=== PATIENT | male | born 1940 | race Caucasian/White ===

== ENCOUNTER 2020-12-12 13:47 | Observation (INO) ==
[2020-12-12 20:08] LABS: ABS Eosinophils 0.1 10^3/ul (0-0.6); ABS Lymphocytes 0.9 10^3/ul (1.0-4.8); ABS Monocytes 0.3 10^3/ul (0-0.8); ABS Neutrophils 3.5 10^3/ul (1.5-7.7); Eosinophil % 2.7 %; Hematocrit 39 % (42-52); Hemoglobin 13.1 g/dL (14.0-18.0); Mean Corpuscular HGB Conc 33 g/dL (31-36); Mean Corpuscular Hemoglobin 30 pg (27-31); Mean Corpuscular Volume 89 fL (80-94); Nucleated Red Blood Cells % 0.1; Red Blood Count 4.44 10^6 /uL (4.18-5.48); Red Cell Distribution Width 14 % (10-15); White Blood Count 4.9 10^3/uL (3.5-10.8)
[2020-12-12 20:09] LABS: Troponin I 0.01 ng/mL (<0.03)
[2020-12-12 20:10] LABS: Albumin 3.9 g/dL (3.2-5.2); Albumin/Globulin Ratio 1.2 (1-3); Calcium 10.2 mg/dL (8.6-10.3); Globulin 3.2 g/dL (2-4); Potassium 4.2 mmol/L (3.5-5.0); Total Bilirubin 0.7 mg/dL (0.2-1.0); Total Protein 7.1 g/dL (6.4-8.9)
[2020-12-12 20:33] LABS: INR 1.17 (0.86-1.15)
[2020-12-12 20:40] LABS: Mean Platelet Volume 7.6 fL (7.4-10.4)
[2020-12-12 20:41] LABS: Platelet Count 177 10^3/uL (150-450)
[2020-12-12] MEDS ORDERED: Dextrose 50% Syringe 50 ml 25 GM/50 ML SYRINGE IV PUSH PRN (22:30)
[2020-12-12] MEDS ORDERED: Nystatin TOP POWDER 15 GM BTL TOPICAL PRN (22:34)
[2020-12-12] MEDS ORDERED: Albuterol HFA INHALER 8 gm MDI INH PRN (22:34)
[2020-12-12] MEDS ORDERED: Cyanocobalamin INJ 1,000 MCG/ML VIAL 1 ML VIAL IM SCH (23:00)
[2020-12-12 23:04] LABS: Rapid COVID-19 Molecular Undetected (Undetected)
[2020-12-12] MEDS ORDERED: Albuterol/Ipratropium NEB.SOL (2.5/0.5 MG) 3 ML NEB.SOLN INH PRN (23:45)
[2020-12-13] MEDS: Morphine ER 15 mg TAB ** extended release PO SCH ×3 (02:31→23:01)
[2020-12-13] MEDS: Lidocaine PATCH 5% PATCH TRANSDERM SCH ×2 (02:32→10:24)
[2020-12-13 02:51] LABS: TSH Ultra Thyroid Stim Horm 2.47 mcIU/mL (0.34-5.60)
[2020-12-13 03:29] LABS: Urine Appearance Clear; Urine Bilirubin Negative (Negative); Urine Blood Negative (Negative); Urine Color Yellow; Urine Glucose 2+(150 mg/dL) (Negative); Urine Ketones Negative (Negative); Urine Nitrite Negative (Negative); Urine Protein Negative (Negative); Urine Specific Gravity 1.016 (1.002-1.030); Urine Urobilinogen Negative (Negative)
[2020-12-13] MEDS: Heparin 5000 UNITS/ML 1 mL VIAL SUBCUT SCH ×2 (05:43→16:22)
[2020-12-13 06:34] LABS: ABS Eosinophils 0.1 10^3/ul (0-0.6); ABS Lymphocytes 0.7 10^3/ul (1.0-4.8); ABS Monocytes 0.5 10^3/ul (0-0.8); Eosinophil % 2.4 %; Hematocrit 35 % (42-52); Hemoglobin 11.7 g/dL (14.0-18.0); Lymphocyte % 12.4 %; Mean Corpuscular HGB Conc 34 g/dL (31-36); Mean Corpuscular Hemoglobin 30 pg (27-31); Mean Corpuscular Volume 88 fL (80-94); Mean Platelet Volume 7.4 fL (7.4-10.4); Nucleated Red Blood Cells % 0.1; Platelet Count 166 10^3/uL (150-450); Red Blood Count 3.95 10^6 /uL (4.18-5.48); Red Cell Distribution Width 14 % (10-15); White Blood Count 5.3 10^3/uL (3.5-10.8)
[2020-12-13 07:07] LABS: Calcium 9.6 mg/dL (8.6-10.3); Potassium 3.9 mmol/L (3.5-5.0)
[2020-12-13] MEDS: Mometasone/Formoter 100/5 MDI INH SCH ×2 (08:19→19:32)
[2020-12-13] MEDS: Insulin GLARGINE 100 un/ml 10 ml VIAL SUBCUT SCH (10:20)
[2020-12-13] MEDS: Lidocaine Patch REMOVE PATCH PATCH OFF SCH (10:24)
[2020-12-13] MEDS: Polyethylene Glycol 3350 17 GM PACKET PO PRN (10:29)
[2020-12-13] MEDS: Pentoxifylline CR 400 mg TAB 400 MG PO SCH ×3 (10:30→21:50)
[2020-12-13] MEDS: OMEGA ACID ETHYL ESTERS PO SCH ×2 (10:31→22:06)
[2020-12-13] MEDS: CMCS: Cyclosporine 0.05% OPHTH (NF) 0.4 ML VIAL BOTH EYES SCH ×2 (10:32→23:01)
[2020-12-13] MEDS ORDERED: Magnesium Hydroxide LIQ 30 ML UDC PO PRN (14:51)
[2020-12-13] MEDS ORDERED: Senna TAB 8.6 mg TAB PO PRN (14:51)
[2020-12-13] MEDS: Sucralfate 1 gm SUSP 1 GM/10 ML UDC PO SCH ×2 (18:24→21:48)
[2020-12-14] MEDS: Heparin 5000 UNITS/ML 1 mL VIAL SUBCUT SCH ×4 (01:29→20:59)
[2020-12-14] MEDS: Lidocaine Patch REMOVE PATCH PATCH OFF SCH ×2 (01:29→21:17)
[2020-12-14] MEDS: Mometasone/Formoter 100/5 MDI INH SCH ×2 (07:28→19:51)
[2020-12-14] MEDS: Sucralfate 1 gm SUSP 1 GM/10 ML UDC PO SCH ×4 (10:00→20:51)
[2020-12-14] MEDS: Insulin GLARGINE 100 un/ml 10 ml VIAL SUBCUT SCH (10:10)
[2020-12-14] MEDS: Polyethylene Glycol 3350 17 GM PACKET PO PRN (10:28)
[2020-12-14] MEDS: Pentoxifylline CR 400 mg TAB 400 MG PO SCH ×3 (10:28→20:52)
[2020-12-14] MEDS: Morphine ER 15 mg TAB ** extended release PO SCH ×2 (10:30→20:54)
[2020-12-14] MEDS: Lidocaine PATCH 5% PATCH TRANSDERM SCH (11:28)
[2020-12-14] MEDS: OMEGA ACID ETHYL ESTERS PO SCH (11:28)
[2020-12-14] MEDS: CMCS: Cyclosporine 0.05% OPHTH (NF) 0.4 ML VIAL BOTH EYES SCH ×2 (13:19→20:57)
[2020-12-14] MEDS ORDERED: Flu vaccine *QUAD* 2021-22* 0.5 ML SYRINGE IM ONE (13:35)
[2020-12-15] MEDS: OMEGA ACID ETHYL ESTERS PO SCH ×2 (01:03→08:20)
[2020-12-15 04:34] LABS: ABS Eosinophils 0.2 10^3/ul (0-0.6); ABS Lymphocytes 1.1 10^3/ul (1.0-4.8); ABS Monocytes 0.4 10^3/ul (0-0.8); ABS Neutrophils 2.3 10^3/ul (1.5-7.7); Eosinophil % 4.1 %; Hematocrit 35 % (42-52); Hemoglobin 11.6 g/dL (14.0-18.0); Mean Corpuscular HGB Conc 33 g/dL (31-36); Mean Corpuscular Hemoglobin 29 pg (27-31); Mean Corpuscular Volume 88 fL (80-94); Mean Platelet Volume 6.9 fL (7.4-10.4); Platelet Count 181 10^3/uL (150-450); Red Blood Count 3.98 10^6 /uL (4.18-5.48); Red Cell Distribution Width 14 % (10-15)
[2020-12-15] MEDS: Heparin 5000 UNITS/ML 1 mL VIAL SUBCUT SCH ×2 (06:06→14:13)
[2020-12-15] MEDS: Mometasone/Formoter 100/5 MDI INH SCH (08:11)
[2020-12-15] MEDS: Lidocaine PATCH 5% PATCH TRANSDERM SCH (08:15)
[2020-12-15] MEDS: Sucralfate 1 gm SUSP 1 GM/10 ML UDC PO SCH ×3 (08:16→17:02)
[2020-12-15] MEDS: Pentoxifylline CR 400 mg TAB 400 MG PO SCH ×2 (08:18→14:13)
[2020-12-15] MEDS: Morphine ER 15 mg TAB ** extended release PO SCH (08:18)
[2020-12-15] MEDS: CMCS: Cyclosporine 0.05% OPHTH (NF) 0.4 ML VIAL BOTH EYES SCH (08:19)
[2020-12-15] MEDS: Insulin GLARGINE 100 un/ml 10 ml VIAL SUBCUT SCH (08:20)
[2020-12-15 16:16] VITALS: BP 124/56
== END 2020-12-15 17:50 | disposition home or self-care (01) ==
LOC: MEDTELE 13:47 → ED 13:47 → SUATTDRO 23:15
PROVIDERS: ADMIT Internal Medicine; ATTEND Internal Medicine

== ENCOUNTER 2021-08-31 17:02 | Inpatient (IN) ==
[2021-08-31 17:39] LABS: ABS Lymphocytes 0.3 10^3/ul (1.0-4.8); ABS Monocytes 0.2 10^3/ul (0-0.8); ABS Neutrophils 2.5 10^3/ul (1.5-7.7); Eosinophil % 0.3 %; Hematocrit 33 % (42-52); Hemoglobin 10.8 g/dL (14.0-18.0); Lymphocyte % 10.8 %; Mean Corpuscular HGB Conc 33 g/dL (31-36); Mean Corpuscular Hemoglobin 29 pg (27-31); Mean Corpuscular Volume 89 fL (80-94); Mean Platelet Volume 7.1 fL (7.4-10.4); Nucleated Red Blood Cells % 0.1; Platelet Count 146 10^3/uL (150-450); Red Blood Count 3.75 10^6 /uL (4.18-5.48); Red Cell Distribution Width 14 % (10-15); White Blood Count 3.1 10^3/uL (3.5-10.8)
[2021-08-31 18:13] LABS: Albumin 3.6 g/dL (3.2-5.2); Albumin/Globulin Ratio 1.7 (1-3); Calcium 8.9 mg/dL (8.6-10.3); Globulin 2.1 g/dL (2-4); Potassium 4.3 mmol/L (3.5-5.0); Total Bilirubin 0.4 mg/dL (0.2-1.0); Total Protein 5.7 g/dL (6.4-8.9); eGFR CKD-EPI 49.5 (>60)
[2021-08-31] MEDS ORDERED: Albuterol HFA INHALER 8 gm MDI INH ONE (18:55)
[2021-08-31] MEDS ORDERED: NS 0.9% 1000 ml BAG 1,000 ML IV SCH (20:15)
[2021-08-31] MEDS ORDERED: Ondansetron 4 mg VIAL 2 MG/ML 2 ml VIAL IV PRN (21:39)
[2021-08-31] MEDS ORDERED: Remdesivir 100 mg Vial 200 MG in NS 0.9% 250 ml 210 ML IV ONE (21:49)
[2021-08-31] MEDS ORDERED: Albuterol HFA INHALER 8 gm MDI INH PRN (22:20)
[2021-08-31] MEDS ORDERED: Ammonium Lactate 12% 1 APPLIC TUBE TOPICAL PRN (22:20)
[2021-08-31] MEDS ORDERED: Nystatin TOP POWDER 15 GM BTL TOPICAL PRN (22:20)
[2021-08-31] MEDS ORDERED: Dextrose 50% Syringe 50 ml 25 GM/50 ML SYRINGE IV PUSH PRN (22:28)
[2021-08-31] MEDS ORDERED: Pantoprazole VIAL 40 MG VIAL IV ONE (22:31)
[2021-08-31 22:59] LABS: Hematocrit 33 % (42-52); Hemoglobin 10.6 g/dL (14.0-18.0)
[2021-08-31] MEDS ORDERED: Pantoprazole VIAL 40 MG VIAL IV SCH (23:00)
[2021-08-31 23:08] LABS: INR 1.15 (0.86-1.15)
[2021-08-31 23:24] LABS: Albumin 3.5 g/dL (3.2-5.2); Albumin/Globulin Ratio 1.8 (1-3); Calcium 8.9 mg/dL (8.6-10.3); Potassium 4.1 mmol/L (3.5-5.0); Total Bilirubin 0.4 mg/dL (0.2-1.0); Total Protein 5.5 g/dL (6.4-8.9); eGFR CKD-EPI 47.9 (>60)
[2021-09-01] MEDS: Morphine ER 15 mg TAB ** extended release PO SCH ×3 (00:55→22:31)
[2021-09-01] MEDS ORDERED: Pentoxifylline CR 400 mg TAB 400 MG PO ONE (01:07)
[2021-09-01] MEDS: MOMETASONE FORMOTEROL INH SCH ×2 (04:05→11:48)
[2021-09-01] MEDS: [UNRECOGNIZED DRUG - OTHER] INH SCH ×2 (04:05→11:48)
[2021-09-01 05:48] LABS: ABS Lymphocytes 0.5 10^3/ul (1.0-4.8); ABS Monocytes 0.2 10^3/ul (0-0.8); ABS Neutrophils 1.7 10^3/ul (1.5-7.7); Eosinophil % 0.7 %; Hematocrit 31 % (42-52); Lymphocyte % 19.3 %; Mean Corpuscular HGB Conc 33 g/dL (31-36); Mean Corpuscular Hemoglobin 29 pg (27-31); Mean Corpuscular Volume 89 fL (80-94); Mean Platelet Volume 7.4 fL (7.4-10.4); Nucleated Red Blood Cells % 0.1; Platelet Count 119 10^3/uL (150-450); Red Blood Count 3.43 10^6 /uL (4.18-5.48); Red Cell Distribution Width 14 % (10-15); White Blood Count 2.5 10^3/uL (3.5-10.8)
[2021-09-01 05:54] LABS: INR 1.14 (0.86-1.15)
[2021-09-01 06:34] LABS: Albumin 3.3 g/dL (3.2-5.2); Albumin/Globulin Ratio 1.8 (1-3); Calcium 8.3 mg/dL (8.6-10.3); Direct Bilirubin 0.1 mg/dL (0.03-0.18); Globulin 1.8 g/dL (2-4); Indirect Bilirubin 0.2 mg/dL (0.3-1.0); Potassium 3.8 mmol/L (3.5-5.0); Total Bilirubin 0.3 mg/dL (0.2-1.0); Total Protein 5.1 g/dL (6.4-8.9); eGFR CKD-EPI 47.9 (>60)
[2021-09-01] MEDS: Insulin GLARGINE 100 un/ml 10 ml VIAL SUBCUT SCH (09:35)
[2021-09-01] MEDS: Pantoprazole VIAL 40 MG VIAL IV SCH ×2 (09:36→22:37)
[2021-09-01] MEDS ORDERED: CMCS:OMEGA-3 FATTY ACID 1000 mg(NF) PO SCH (11:00)
[2021-09-01] MEDS: Pentoxifylline CR 400 mg TAB 400 MG PO SCH ×3 (11:27→22:33)
[2021-09-01] MEDS: Mometasone/Formoter 100/5 MDI INH SCH ×2 (11:27→19:56)
[2021-09-01] MEDS: SPIRIVA Respimat (tiotropium) 2.5 mcg/inh Inhaler INH SCH (11:28)
[2021-09-01 11:52] LABS: Hematocrit 30 % (42-52); Hemoglobin 9.9 g/dL (14.0-18.0)
[2021-09-01] MEDS: Remdesivir 100 mg Vial 100 MG in NS 0.9% 250 ml 230 ML IV SCH (22:23)
[2021-09-01] MEDS: CMCS:OMEGA-3 FATTY ACID 1000 mg(NF) PO SCH (22:30)
[2021-09-01] MEDS: CMCS: Cyclosporine 0.05% OPHTH (NF) 0.4 ML VIAL BOTH EYES SCH (22:36)
[2021-09-01] MEDS ORDERED: Insulin GLARGINE 100 un/ml 10 ml VIAL SUBCUT ONE (22:57)
[2021-09-02] MEDS: SPIRIVA Respimat (tiotropium) 2.5 mcg/inh Inhaler INH SCH (07:35)
[2021-09-02] MEDS: Mometasone/Formoter 100/5 MDI INH SCH ×2 (07:35→20:15)
[2021-09-02] MEDS: CMCS:OMEGA-3 FATTY ACID 1000 mg(NF) PO SCH ×2 (08:15→22:11)
[2021-09-02] MEDS: Pentoxifylline CR 400 mg TAB 400 MG PO SCH ×3 (08:16→22:13)
[2021-09-02] MEDS: Morphine ER 15 mg TAB ** extended release PO SCH ×2 (08:16→22:14)
[2021-09-02] MEDS: CMCS: Cyclosporine 0.05% OPHTH (NF) 0.4 ML VIAL BOTH EYES SCH ×2 (08:17→22:22)
[2021-09-02] MEDS: Pantoprazole VIAL 40 MG VIAL IV SCH ×2 (08:17→22:16)
[2021-09-02] MEDS: Insulin GLARGINE 100 un/ml 10 ml VIAL SUBCUT SCH ×3 (08:18→22:23)
[2021-09-02 08:23] LABS: ABS Lymphocytes 0.3 10^3/ul (1.0-4.8); ABS Monocytes 0.2 10^3/ul (0-0.8); ABS Neutrophils 1.2 10^3/ul (1.5-7.7); Hematocrit 28 % (42-52); Hemoglobin 9.2 g/dL (14.0-18.0); Lymphocyte % 17.6 %; Mean Corpuscular HGB Conc 34 g/dL (31-36); Mean Corpuscular Hemoglobin 30 pg (27-31); Mean Corpuscular Volume 89 fL (80-94); Mean Platelet Volume 7.7 fL (7.4-10.4); Platelet Count 120 10^3/uL (150-450); Red Cell Distribution Width 14 % (10-15); White Blood Count 1.7 10^3/uL (3.5-10.8)
[2021-09-02 08:36] LABS: Albumin 3.1 g/dL (3.2-5.2); Albumin/Globulin Ratio 1.6 (1-3); Globulin 1.9 g/dL (2-4); Potassium 4.1 mmol/L (3.5-5.0); Total Bilirubin 0.3 mg/dL (0.2-1.0); eGFR CKD-EPI 50.4 (>60)
[2021-09-02 08:37] LABS: INR 1.15 (0.86-1.15)
[2021-09-02] MEDS ORDERED: Lorazepam PYXIS KEY ONE (10:38)
[2021-09-02] MEDS: Polyethylene Glycol 3350 17 GM PACKET PO PRN (12:00)
[2021-09-02 17:53] LABS: Hematocrit 28 % (42-52); Hemoglobin 9.3 g/dL (14.0-18.0)
[2021-09-02] MEDS: Remdesivir 100 mg Vial 100 MG in NS 0.9% 250 ml 230 ML IV SCH (22:05)
[2021-09-03] MEDS: Albuterol HFA INHALER 8 gm MDI INH PRN ×2 (00:40→20:46)
[2021-09-03 06:31] LABS: INR 1.12 (0.86-1.15)
[2021-09-03 06:52] LABS: Albumin/Globulin Ratio 1.6 (1-3); Calcium 8.1 mg/dL (8.6-10.3); Globulin 1.9 g/dL (2-4); Potassium 3.9 mmol/L (3.5-5.0); Total Bilirubin 0.2 mg/dL (0.2-1.0); Total Protein 4.9 g/dL (6.4-8.9)
[2021-09-03] MEDS: SPIRIVA Respimat (tiotropium) 2.5 mcg/inh Inhaler INH SCH (08:20)
[2021-09-03] MEDS: Mometasone/Formoter 100/5 MDI INH SCH ×2 (08:20→20:45)
[2021-09-03] MEDS: Pentoxifylline CR 400 mg TAB 400 MG PO SCH ×3 (08:37→23:11)
[2021-09-03] MEDS: Morphine ER 15 mg TAB ** extended release PO SCH ×2 (08:38→23:12)
[2021-09-03] MEDS: Insulin GLARGINE 100 un/ml 10 ml VIAL SUBCUT SCH ×2 (08:39→23:33)
[2021-09-03] MEDS: CMCS:OMEGA-3 FATTY ACID 1000 mg(NF) PO SCH ×2 (08:39→23:10)
[2021-09-03] MEDS: Pantoprazole VIAL 40 MG VIAL IV SCH ×2 (08:39→23:05)
[2021-09-03] MEDS: CMCS: Cyclosporine 0.05% OPHTH (NF) 0.4 ML VIAL BOTH EYES SCH ×3 (09:04→23:14)
[2021-09-03] MEDS: Polyethylene Glycol 3350 17 GM PACKET PO PRN (15:01)
[2021-09-03 15:04] LABS: ABS Lymphocytes 0.5 10^3/ul (1.0-4.8); ABS Monocytes 0.2 10^3/ul (0-0.8); ABS Neutrophils 1.7 10^3/ul (1.5-7.7); Eosinophil % 0.3 %; Hematocrit 28 % (42-52); Hemoglobin 9.1 g/dL (14.0-18.0); Lymphocyte % 21.6 %; Mean Corpuscular HGB Conc 33 g/dL (31-36); Mean Corpuscular Hemoglobin 29 pg (27-31); Mean Corpuscular Volume 88 fL (80-94); Mean Platelet Volume 8.1 fL (7.4-10.4); Nucleated Red Blood Cells % 0.1; Platelet Count 128 10^3/uL (150-450); Red Blood Count 3.16 10^6 /uL (4.18-5.48); Red Cell Distribution Width 14 % (10-15); White Blood Count 2.4 10^3/uL (3.5-10.8)
[2021-09-03] MEDS: Remdesivir 100 mg Vial 100 MG in NS 0.9% 250 ml 230 ML IV SCH (23:01)
[2021-09-04 06:47] LABS: ABS Lymphocytes 0.6 10^3/ul (1.0-4.8); ABS Monocytes 0.2 10^3/ul (0-0.8); ABS Neutrophils 1.6 10^3/ul (1.5-7.7); Eosinophil % 0.5 %; Hematocrit 29 % (42-52); Hemoglobin 9.5 g/dL (14.0-18.0); INR 1.11 (0.86-1.15); Lymphocyte % 24.4 %; Mean Corpuscular HGB Conc 33 g/dL (31-36); Mean Corpuscular Hemoglobin 30 pg (27-31); Mean Corpuscular Volume 89 fL (80-94); Platelet Count 141 10^3/uL (150-450); Red Blood Count 3.23 10^6 /uL (4.18-5.48); Red Cell Distribution Width 14 % (10-15); White Blood Count 2.5 10^3/uL (3.5-10.8)
[2021-09-04 07:21] LABS: Albumin 3.2 g/dL (3.2-5.2); Albumin/Globulin Ratio 1.7 (1-3); Globulin 1.9 g/dL (2-4); Potassium 4.3 mmol/L (3.5-5.0); Total Bilirubin 0.2 mg/dL (0.2-1.0); Total Protein 5.1 g/dL (6.4-8.9); eGFR CKD-EPI 56.1 (>60)
[2021-09-04] MEDS: Albuterol HFA INHALER 8 gm MDI INH PRN (07:41)
[2021-09-04] MEDS: Insulin GLARGINE 100 un/ml 10 ml VIAL SUBCUT SCH ×2 (09:16→23:37)
[2021-09-04] MEDS: Pentoxifylline CR 400 mg TAB 400 MG PO SCH ×3 (09:18→23:34)
[2021-09-04] MEDS: Morphine ER 15 mg TAB ** extended release PO SCH ×2 (09:18→23:34)
[2021-09-04] MEDS: Polyethylene Glycol 3350 17 GM PACKET PO PRN (09:19)
[2021-09-04] MEDS: Pantoprazole VIAL 40 MG VIAL IV SCH ×2 (09:19→23:40)
[2021-09-04] MEDS: CMCS: Cyclosporine 0.05% OPHTH (NF) 0.4 ML VIAL BOTH EYES SCH ×2 (09:20→23:40)
[2021-09-04] MEDS: CMCS:OMEGA-3 FATTY ACID 1000 mg(NF) PO SCH ×2 (09:22→23:36)
[2021-09-04] MEDS: Mometasone/Formoter 100/5 MDI INH SCH ×2 (09:23→19:02)
[2021-09-04] MEDS: SPIRIVA Respimat (tiotropium) 2.5 mcg/inh Inhaler INH SCH (09:24)
[2021-09-04] MEDS: Remdesivir 100 mg Vial 100 MG in NS 0.9% 250 ml 230 ML IV SCH (23:30)
[2021-09-05 06:10] LABS: Hematocrit 30 % (42-52); Hemoglobin 9.6 g/dL (14.0-18.0); Mean Corpuscular HGB Conc 33 g/dL (31-36); Mean Corpuscular Hemoglobin 29 pg (27-31); Mean Corpuscular Volume 88 fL (80-94); Mean Platelet Volume 7.9 fL (7.4-10.4); Platelet Count 177 10^3/uL (150-450); Red Blood Count 3.35 10^6 /uL (4.18-5.48); Red Cell Distribution Width 14 % (10-15); White Blood Count 2.9 10^3/uL (3.5-10.8)
[2021-09-05 06:15] LABS: INR 1.18 (0.86-1.15)
[2021-09-05 06:46] LABS: Albumin 3.2 g/dL (3.2-5.2); Albumin/Globulin Ratio 1.8 (1-3); Calcium 8.4 mg/dL (8.6-10.3); Globulin 1.8 g/dL (2-4); Potassium 4.6 mmol/L (3.5-5.0); Total Bilirubin 0.3 mg/dL (0.2-1.0); eGFR CKD-EPI 62.4 (>60)
[2021-09-05] MEDS: SPIRIVA Respimat (tiotropium) 2.5 mcg/inh Inhaler INH SCH (08:19)
[2021-09-05] MEDS: Mometasone/Formoter 100/5 MDI INH SCH (08:20)
[2021-09-05 08:27] LABS: ABS Lymphocytes 0.5 10^3/ul (1.0-4.8); ABS Monocytes 0.3 10^3/ul (0-0.8); ABS Neutrophils 2.1 10^3/ul (1.5-7.7); Eosinophil % 0.3 %; Lymphocyte % 17.4 %; Nucleated Red Blood Cells % 0.1
[2021-09-05] MEDS: Insulin GLARGINE 100 un/ml 10 ml VIAL SUBCUT SCH (09:23)
[2021-09-05] MEDS: Pantoprazole VIAL 40 MG VIAL IV SCH (09:23)
[2021-09-05] MEDS: Morphine ER 15 mg TAB ** extended release PO SCH (09:24)
[2021-09-05] MEDS: Pentoxifylline CR 400 mg TAB 400 MG PO SCH (09:24)
[2021-09-05] MEDS: CMCS:OMEGA-3 FATTY ACID 1000 mg(NF) PO SCH (09:25)
[2021-09-05] MEDS: CMCS: Cyclosporine 0.05% OPHTH (NF) 0.4 ML VIAL BOTH EYES SCH ×2 (11:34→11:38)
[2021-09-05 12:35] VITALS: BP 137/55
== END 2021-09-05 13:36 | DRG 177 ==
LOC: EDHOLD 17:02 → ED 17:02 → SUATTDRO 21:33 → MED 09-01 14:23 → SUATTDRO 09-02 20:04 → MED 09-05 03:54
PROVIDERS: ADMIT Internal Medicine; ATTEND Hospitalist

== ENCOUNTER 2021-09-05 11:50 | Inpatient (IN) ==
[2021-09-05] MEDS ORDERED: Senna TAB 8.6 mg TAB PO PRN (16:35)
[2021-09-05] MEDS ORDERED: Dextrose 50% Syringe 50 ml 25 GM/50 ML SYRINGE IV PUSH PRN (16:48)
[2021-09-05] MEDS: Mometasone/Formoter 100/5 MDI INH SCH ×2 (19:24→19:28)
[2021-09-05] MEDS: Morphine ER 15 mg TAB ** extended release PO SCH (21:07)
[2021-09-05] MEDS: Pentoxifylline CR 400 mg TAB 400 MG PO SCH (21:08)
[2021-09-05] MEDS: Pantoprazole VIAL 40 MG VIAL IV SCH (21:09)
[2021-09-05] MEDS: CMCS: Cyclosporine 0.05% OPHTH (NF) 0.4 ML VIAL BOTH EYES SCH (21:10)
[2021-09-05] MEDS: Insulin GLARGINE 100 un/ml 10 ml VIAL SUBCUT SCH (22:43)
[2021-09-05] MEDS: CMCS: OMEGA-3 FATTY ACID 1000 mg(NF) PO SCH (22:44)
[2021-09-05] MEDS: Polyethylene Glycol 3350 17 GM PACKET PO PRN (22:45)
[2021-09-06 00:32] LABS: Hematocrit 29 % (42-52); Hemoglobin 9.6 g/dL (14.0-18.0)
[2021-09-06] MEDS: Mometasone/Formoter 100/5 MDI INH SCH ×2 (08:41→19:46)
[2021-09-06] MEDS: Pentoxifylline CR 400 mg TAB 400 MG PO SCH ×3 (08:42→22:43)
[2021-09-06] MEDS: SPIRIVA Respimat (tiotropium) 2.5 mcg/inh Inhaler INH SCH (08:42)
[2021-09-06] MEDS: Morphine ER 15 mg TAB ** extended release PO SCH ×2 (08:42→22:43)
[2021-09-06] MEDS: CMCS: Cyclosporine 0.05% OPHTH (NF) 0.4 ML VIAL BOTH EYES SCH ×3 (08:43→22:46)
[2021-09-06] MEDS: Insulin GLARGINE 100 un/ml 10 ml VIAL SUBCUT SCH ×2 (08:44→22:30)
[2021-09-06] MEDS: CMCS: OMEGA-3 FATTY ACID 1000 mg(NF) PO SCH ×2 (08:44→22:45)
[2021-09-06] MEDS: Pantoprazole VIAL 40 MG VIAL IV SCH ×2 (08:45→22:57)
[2021-09-06] MEDS: Albuterol HFA INHALER 8 gm MDI INH PRN ×2 (16:18→23:05)
[2021-09-06] MEDS: Sucralfate 1 gm SUSP 1 GM/10 ML UDC PO SCH ×2 (16:44→22:36)
[2021-09-07 06:48] LABS: Hematocrit 29 % (42-52); Hemoglobin 9.9 g/dL (14.0-18.0); Mean Corpuscular HGB Conc 34 g/dL (31-36); Mean Corpuscular Hemoglobin 30 pg (27-31); Mean Corpuscular Volume 89 fL (80-94); Mean Platelet Volume 7.9 fL (7.4-10.4); Platelet Count 238 10^3/uL (150-450); Red Blood Count 3.32 10^6 /uL (4.18-5.48); Red Cell Distribution Width 15 % (10-15); White Blood Count 4.6 10^3/uL (3.5-10.8)
[2021-09-07 07:14] LABS: ABS Eosinophils 0.1 10^3/ul (0-0.6); ABS Lymphocytes 0.8 10^3/ul (1.0-4.8); ABS Monocytes 0.5 10^3/ul (0-0.8); ABS Neutrophils 3.2 10^3/ul (1.5-7.7); Eosinophil % 2.3 %; Nucleated Red Blood Cells % 0.1
[2021-09-07 07:21] LABS: Albumin 3.3 g/dL (3.2-5.2); Albumin/Globulin Ratio 1.8 (1-3); Calcium 9.1 mg/dL (8.6-10.3); Globulin 1.8 g/dL (2-4); Potassium 4.2 mmol/L (3.5-5.0); Total Bilirubin 0.3 mg/dL (0.2-1.0); Total Protein 5.1 g/dL (6.4-8.9); eGFR CKD-EPI 51.2 (>60)
[2021-09-07] MEDS: Mometasone/Formoter 100/5 MDI INH SCH ×2 (08:28→19:38)
[2021-09-07] MEDS: SPIRIVA Respimat (tiotropium) 2.5 mcg/inh Inhaler INH SCH (08:29)
[2021-09-07] MEDS: Sucralfate 1 gm SUSP 1 GM/10 ML UDC PO SCH ×4 (09:30→23:37)
[2021-09-07] MEDS: CMCS: OMEGA-3 FATTY ACID 1000 mg(NF) PO SCH ×2 (09:31→23:45)
[2021-09-07] MEDS: Morphine ER 15 mg TAB ** extended release PO SCH ×2 (09:32→23:34)
[2021-09-07] MEDS: Pentoxifylline CR 400 mg TAB 400 MG PO SCH ×3 (09:32→23:36)
[2021-09-07] MEDS: CMCS: Cyclosporine 0.05% OPHTH (NF) 0.4 ML VIAL BOTH EYES SCH ×2 (09:33→23:39)
[2021-09-07] MEDS: Insulin GLARGINE 100 un/ml 10 ml VIAL SUBCUT SCH ×2 (09:34→23:39)
[2021-09-07] MEDS: Polyethylene Glycol 3350 17 GM PACKET PO PRN (09:37)
[2021-09-07] MEDS: Albuterol HFA INHALER 8 gm MDI INH PRN (23:32)
[2021-09-08] MEDS: Sucralfate 1 gm SUSP 1 GM/10 ML UDC PO SCH ×4 (07:31→21:58)
[2021-09-08] MEDS: Mometasone/Formoter 100/5 MDI INH SCH ×2 (07:52→18:38)
[2021-09-08] MEDS: SPIRIVA Respimat (tiotropium) 2.5 mcg/inh Inhaler INH SCH (07:53)
[2021-09-08] MEDS: Pentoxifylline CR 400 mg TAB 400 MG PO SCH ×3 (09:11→22:03)
[2021-09-08] MEDS: CMCS: Cyclosporine 0.05% OPHTH (NF) 0.4 ML VIAL BOTH EYES SCH ×3 (09:13→22:04)
[2021-09-08] MEDS: Insulin GLARGINE 100 un/ml 10 ml VIAL SUBCUT SCH ×2 (09:13→22:12)
[2021-09-08] MEDS: Morphine ER 15 mg TAB ** extended release PO SCH ×2 (10:21→21:59)
[2021-09-08] MEDS: CMCS: OMEGA-3 FATTY ACID 1000 mg(NF) PO SCH ×2 (11:13→22:49)
[2021-09-08] MEDS: Magnesium Hydroxide LIQ 30 ML UDC PO PRN (14:36)
[2021-09-08] MEDS: Albuterol HFA INHALER 8 gm MDI INH PRN (21:33)
[2021-09-08] MEDS ORDERED: guaiFENesin DM SUGAR FREE 100 MG/10 MG 5 ML UDC PO PRN (22:27)
[2021-09-09] MEDS: Mometasone/Formoter 100/5 MDI INH SCH ×2 (06:04→19:18)
[2021-09-09] MEDS: Sucralfate 1 gm SUSP 1 GM/10 ML UDC PO SCH ×2 (07:40→12:49)
[2021-09-09] MEDS: CMCS: OMEGA-3 FATTY ACID 1000 mg(NF) PO SCH ×2 (08:12→21:37)
[2021-09-09] MEDS: Pentoxifylline CR 400 mg TAB 400 MG PO SCH ×3 (08:17→21:37)
[2021-09-09] MEDS: Morphine ER 15 mg TAB ** extended release PO SCH ×2 (08:17→21:34)
[2021-09-09] MEDS: CMCS: Cyclosporine 0.05% OPHTH (NF) 0.4 ML VIAL BOTH EYES SCH ×2 (08:18→21:25)
[2021-09-09] MEDS: Insulin GLARGINE 100 un/ml 10 ml VIAL SUBCUT SCH ×2 (08:18→21:41)
[2021-09-09] MEDS: SPIRIVA Respimat (tiotropium) 2.5 mcg/inh Inhaler INH SCH (08:19)
[2021-09-10] MEDS: Mometasone/Formoter 100/5 MDI INH SCH ×2 (05:15→18:57)
[2021-09-10 06:39] LABS: Calcium 9.3 mg/dL (8.6-10.3); Potassium 4.1 mmol/L (3.5-5.0); eGFR CKD-EPI 40.8 (>60)
[2021-09-10] MEDS: Morphine ER 15 mg TAB ** extended release PO SCH ×2 (07:40→21:06)
[2021-09-10] MEDS: Pentoxifylline CR 400 mg TAB 400 MG PO SCH ×3 (07:41→21:09)
[2021-09-10] MEDS: CMCS: Cyclosporine 0.05% OPHTH (NF) 0.4 ML VIAL BOTH EYES SCH ×2 (07:42→21:08)
[2021-09-10] MEDS: CMCS: OMEGA-3 FATTY ACID 1000 mg(NF) PO SCH ×2 (07:43→21:04)
[2021-09-10] MEDS: SPIRIVA Respimat (tiotropium) 2.5 mcg/inh Inhaler INH SCH (07:46)
[2021-09-10] MEDS: Insulin GLARGINE 100 un/ml 10 ml VIAL SUBCUT SCH ×2 (09:36→22:37)
[2021-09-10] MEDS: Nystatin TOP POWDER 15 GM BTL TOPICAL SCH ×2 (12:21→21:09)
[2021-09-10] MEDS: Albuterol HFA INHALER 8 gm MDI INH PRN (18:56)
[2021-09-11] MEDS: Mometasone/Formoter 100/5 MDI INH SCH ×2 (07:47→18:44)
[2021-09-11] MEDS: Insulin GLARGINE 100 un/ml 10 ml VIAL SUBCUT SCH ×2 (09:50→21:51)
[2021-09-11] MEDS: Pentoxifylline CR 400 mg TAB 400 MG PO SCH ×3 (09:51→21:50)
[2021-09-11] MEDS: Morphine ER 15 mg TAB ** extended release PO SCH ×2 (09:51→21:53)
[2021-09-11] MEDS: CMCS: OMEGA-3 FATTY ACID 1000 mg(NF) PO SCH ×2 (09:52→22:33)
[2021-09-11] MEDS: SPIRIVA Respimat (tiotropium) 2.5 mcg/inh Inhaler INH SCH (09:53)
[2021-09-11] MEDS: Nystatin TOP POWDER 15 GM BTL TOPICAL SCH ×2 (09:54→21:53)
[2021-09-11] MEDS: CMCS: Cyclosporine 0.05% OPHTH (NF) 0.4 ML VIAL BOTH EYES SCH ×2 (10:05→21:51)
[2021-09-11] MEDS: Sucralfate 1 gm SUSP 1 GM/10 ML UDC PO SCH ×3 (13:30→22:33)
[2021-09-11] MEDS ORDERED: Amoxicillin/Clavul 875/125 TAB (Augmentin 875 tab) PO ONE (22:31)
[2021-09-12 05:59] LABS: ABS Basophils 0.1 10^3/ul (0-0.2); ABS Eosinophils 0.1 10^3/ul (0-0.6); ABS Lymphocytes 0.6 10^3/ul (1.0-4.8); ABS Monocytes 0.7 10^3/ul (0-0.8); ABS Neutrophils 7.5 10^3/ul (1.5-7.7); Eosinophil % 1.5 %; Hematocrit 30 % (42-52); Hemoglobin 9.8 g/dL (14.0-18.0); Lymphocyte % 6.6 %; Mean Corpuscular HGB Conc 33 g/dL (31-36); Mean Corpuscular Hemoglobin 28 pg (27-31); Mean Corpuscular Volume 88 fL (80-94); Mean Platelet Volume 6.9 fL (7.4-10.4); Platelet Count 237 10^3/uL (150-450); Red Blood Count 3.44 10^6 /uL (4.18-5.48); Red Cell Distribution Width 14 % (10-15)
[2021-09-12] MEDS: Albuterol HFA INHALER 8 gm MDI INH PRN ×2 (07:19→18:45)
[2021-09-12] MEDS: Mometasone/Formoter 100/5 MDI INH SCH ×2 (07:20→18:45)
[2021-09-12] MEDS: Sucralfate 1 gm SUSP 1 GM/10 ML UDC PO SCH ×4 (07:36→20:53)
[2021-09-12] MEDS: Pentoxifylline CR 400 mg TAB 400 MG PO SCH ×3 (09:40→20:53)
[2021-09-12] MEDS: Morphine ER 15 mg TAB ** extended release PO SCH ×2 (09:41→20:51)
[2021-09-12] MEDS: Amoxicillin/Clavul 875/125 TAB (Augmentin 875 tab) PO SCH ×2 (09:42→20:50)
[2021-09-12] MEDS: CMCS: OMEGA-3 FATTY ACID 1000 mg(NF) PO SCH ×2 (09:43→20:45)
[2021-09-12] MEDS: CMCS: Cyclosporine 0.05% OPHTH (NF) 0.4 ML VIAL BOTH EYES SCH ×2 (09:43→20:45)
[2021-09-12] MEDS: Insulin GLARGINE 100 un/ml 10 ml VIAL SUBCUT SCH ×2 (09:44→20:43)
[2021-09-12] MEDS: Nystatin TOP POWDER 15 GM BTL TOPICAL SCH ×2 (09:44→20:54)
[2021-09-12] MEDS: SPIRIVA Respimat (tiotropium) 2.5 mcg/inh Inhaler INH SCH (09:52)
[2021-09-13] MEDS: Albuterol HFA INHALER 8 gm MDI INH PRN (05:52)
[2021-09-13] MEDS: Mometasone/Formoter 100/5 MDI INH SCH ×2 (07:41→18:55)
[2021-09-13] MEDS: Sucralfate 1 gm SUSP 1 GM/10 ML UDC PO SCH ×4 (07:41→21:06)
[2021-09-13] MEDS: Insulin GLARGINE 100 un/ml 10 ml VIAL SUBCUT SCH ×2 (07:42→21:07)
[2021-09-13] MEDS: CMCS: OMEGA-3 FATTY ACID 1000 mg(NF) PO SCH ×2 (08:09→21:05)
[2021-09-13] MEDS: Amoxicillin/Clavul 875/125 TAB (Augmentin 875 tab) PO SCH ×2 (08:10→20:59)
[2021-09-13] MEDS: Pentoxifylline CR 400 mg TAB 400 MG PO SCH ×3 (08:11→21:03)
[2021-09-13] MEDS: Nystatin TOP POWDER 15 GM BTL TOPICAL SCH ×2 (08:12→21:11)
[2021-09-13] MEDS: CMCS: Cyclosporine 0.05% OPHTH (NF) 0.4 ML VIAL BOTH EYES SCH ×3 (08:12→21:27)
[2021-09-13] MEDS: Morphine ER 15 mg TAB ** extended release PO SCH ×2 (08:12→20:55)
[2021-09-13] MEDS: SPIRIVA Respimat (tiotropium) 2.5 mcg/inh Inhaler INH SCH (08:13)
[2021-09-14] MEDS: Mometasone/Formoter 100/5 MDI INH SCH ×2 (05:14→18:19)
[2021-09-14 06:27] LABS: ABS Eosinophils 0.1 10^3/ul (0-0.6); ABS Lymphocytes 0.3 10^3/ul (1.0-4.8); ABS Monocytes 0.5 10^3/ul (0-0.8); ABS Neutrophils 5.9 10^3/ul (1.5-7.7); Eosinophil % 0.9 %; Hematocrit 29 % (42-52); Hemoglobin 9.6 g/dL (14.0-18.0); Mean Corpuscular HGB Conc 33 g/dL (31-36); Mean Corpuscular Hemoglobin 29 pg (27-31); Mean Corpuscular Volume 88 fL (80-94); Mean Platelet Volume 6.9 fL (7.4-10.4); Platelet Count 212 10^3/uL (150-450); Red Blood Count 3.31 10^6 /uL (4.18-5.48); Red Cell Distribution Width 15 % (10-15); White Blood Count 6.9 10^3/uL (3.5-10.8)
[2021-09-14 07:04] LABS: Albumin/Globulin Ratio 1.3 (1-3); Calcium 8.4 mg/dL (8.6-10.3); Globulin 2.3 g/dL (2-4); Total Bilirubin 0.4 mg/dL (0.2-1.0); Total Protein 5.3 g/dL (6.4-8.9); eGFR CKD-EPI 52.1 (>60)
[2021-09-14] MEDS: CMCS: OMEGA-3 FATTY ACID 1000 mg(NF) PO SCH ×2 (08:10→20:49)
[2021-09-14] MEDS: Pentoxifylline CR 400 mg TAB 400 MG PO SCH ×3 (08:13→20:43)
[2021-09-14] MEDS: Sucralfate 1 gm SUSP 1 GM/10 ML UDC PO SCH ×4 (08:14→20:50)
[2021-09-14] MEDS: Amoxicillin/Clavul 875/125 TAB (Augmentin 875 tab) PO SCH ×2 (08:15→20:47)
[2021-09-14] MEDS: Nystatin TOP POWDER 15 GM BTL TOPICAL SCH ×2 (08:16→20:53)
[2021-09-14] MEDS: Morphine ER 15 mg TAB ** extended release PO SCH ×2 (08:16→20:45)
[2021-09-14] MEDS: CMCS: Cyclosporine 0.05% OPHTH (NF) 0.4 ML VIAL BOTH EYES SCH ×2 (08:16→21:35)
[2021-09-14] MEDS: Insulin GLARGINE 100 un/ml 10 ml VIAL SUBCUT SCH ×2 (08:17→20:52)
[2021-09-14] MEDS: SPIRIVA Respimat (tiotropium) 2.5 mcg/inh Inhaler INH SCH (08:18)
[2021-09-15] MEDS: Albuterol HFA INHALER 8 gm MDI INH PRN (05:05)
[2021-09-15] MEDS: Mometasone/Formoter 100/5 MDI INH SCH ×2 (05:06→19:34)
[2021-09-15] MEDS: Sucralfate 1 gm SUSP 1 GM/10 ML UDC PO SCH ×4 (07:28→21:23)
[2021-09-15] MEDS: SPIRIVA Respimat (tiotropium) 2.5 mcg/inh Inhaler INH SCH (07:29)
[2021-09-15] MEDS: CMCS: OMEGA-3 FATTY ACID 1000 mg(NF) PO SCH ×2 (07:31→21:14)
[2021-09-15] MEDS: Pentoxifylline CR 400 mg TAB 400 MG PO SCH ×3 (07:33→21:13)
[2021-09-15] MEDS: Amoxicillin/Clavul 875/125 TAB (Augmentin 875 tab) PO SCH ×2 (07:33→21:14)
[2021-09-15] MEDS: Morphine ER 15 mg TAB ** extended release PO SCH ×2 (07:34→21:13)
[2021-09-15] MEDS: CMCS: Cyclosporine 0.05% OPHTH (NF) 0.4 ML VIAL BOTH EYES SCH ×2 (07:36→21:15)
[2021-09-15] MEDS: Nystatin TOP POWDER 15 GM BTL TOPICAL SCH ×2 (07:49→21:16)
[2021-09-15] MEDS: Insulin GLARGINE 100 un/ml 10 ml VIAL SUBCUT SCH ×2 (08:01→21:14)
[2021-09-16] MEDS: Sucralfate 1 gm SUSP 1 GM/10 ML UDC PO SCH ×4 (07:30→20:57)
[2021-09-16] MEDS: Mometasone/Formoter 100/5 MDI INH SCH ×2 (07:48→19:07)
[2021-09-16] MEDS: CMCS: OMEGA-3 FATTY ACID 1000 mg(NF) PO SCH ×2 (07:51→20:57)
[2021-09-16] MEDS: Pentoxifylline CR 400 mg TAB 400 MG PO SCH ×3 (08:04→20:48)
[2021-09-16] MEDS: Amoxicillin/Clavul 875/125 TAB (Augmentin 875 tab) PO SCH ×2 (08:04→20:49)
[2021-09-16] MEDS: Morphine ER 15 mg TAB ** extended release PO SCH ×2 (08:05→20:48)
[2021-09-16] MEDS: SPIRIVA Respimat (tiotropium) 2.5 mcg/inh Inhaler INH SCH (08:06)
[2021-09-16] MEDS: Nystatin TOP POWDER 15 GM BTL TOPICAL SCH ×2 (08:07→21:07)
[2021-09-16] MEDS: CMCS: Cyclosporine 0.05% OPHTH (NF) 0.4 ML VIAL BOTH EYES SCH ×2 (08:07→20:49)
[2021-09-16] MEDS: Insulin GLARGINE 100 un/ml 10 ml VIAL SUBCUT SCH ×2 (09:01→20:45)
[2021-09-17 06:05] LABS: ABS Eosinophils 0.1 10^3/ul (0-0.6); ABS Lymphocytes 0.4 10^3/ul (1.0-4.8); ABS Monocytes 0.4 10^3/ul (0-0.8); ABS Neutrophils 6.4 10^3/ul (1.5-7.7); Eosinophil % 1.4 %; Hematocrit 28 % (42-52); Hemoglobin 9.1 g/dL (14.0-18.0); Lymphocyte % 5.3 %; Mean Corpuscular HGB Conc 32 g/dL (31-36); Mean Corpuscular Hemoglobin 28 pg (27-31); Mean Corpuscular Volume 88 fL (80-94); Mean Platelet Volume 6.5 fL (7.4-10.4); Nucleated Red Blood Cells % 0.1; Platelet Count 190 10^3/uL (150-450); Red Blood Count 3.22 10^6 /uL (4.18-5.48); Red Cell Distribution Width 15 % (10-15); White Blood Count 7.3 10^3/uL (3.5-10.8)
[2021-09-17 06:41] LABS: Calcium 8.5 mg/dL (8.6-10.3); eGFR CKD-EPI 54.5 (>60)
[2021-09-17] MEDS: Mometasone/Formoter 100/5 MDI INH SCH ×2 (08:49→20:43)
[2021-09-17] MEDS: Pentoxifylline CR 400 mg TAB 400 MG PO SCH ×3 (08:56→21:53)
[2021-09-17] MEDS: Morphine ER 15 mg TAB ** extended release PO SCH ×2 (08:56→21:53)
[2021-09-17] MEDS: Sucralfate 1 gm SUSP 1 GM/10 ML UDC PO SCH ×4 (08:57→21:51)
[2021-09-17] MEDS: Amoxicillin/Clavul 875/125 TAB (Augmentin 875 tab) PO SCH ×2 (08:59→21:51)
[2021-09-17] MEDS: CMCS: OMEGA-3 FATTY ACID 1000 mg(NF) PO SCH ×2 (09:00→21:50)
[2021-09-17] MEDS: CMCS: Cyclosporine 0.05% OPHTH (NF) 0.4 ML VIAL BOTH EYES SCH ×2 (09:01→21:53)
[2021-09-17] MEDS: Nystatin TOP POWDER 15 GM BTL TOPICAL SCH ×3 (09:03→22:12)
[2021-09-17] MEDS: SPIRIVA Respimat (tiotropium) 2.5 mcg/inh Inhaler INH SCH (09:04)
[2021-09-17] MEDS: Insulin GLARGINE 100 un/ml 10 ml VIAL SUBCUT SCH ×2 (09:32→21:49)
[2021-09-17] MEDS ORDERED: Furosemide 40 mg/4 ml IV VIAL IV ONE (15:13)
[2021-09-17] MEDS: Mometasone/Formoter 200/5 MDI INH SCH (21:13)
[2021-09-18 06:00] LABS: ABS Eosinophils 0.1 10^3/ul (0-0.6); ABS Lymphocytes 0.4 10^3/ul (1.0-4.8); ABS Monocytes 0.3 10^3/ul (0-0.8); ABS Neutrophils 5.6 10^3/ul (1.5-7.7); Eosinophil % 1.6 %; Hematocrit 28 % (42-52); Hemoglobin 8.7 g/dL (14.0-18.0); Lymphocyte % 6.9 %; Mean Corpuscular HGB Conc 32 g/dL (31-36); Mean Corpuscular Hemoglobin 28 pg (27-31); Mean Corpuscular Volume 87 fL (80-94); Mean Platelet Volume 6.3 fL (7.4-10.4); Platelet Count 205 10^3/uL (150-450); Red Blood Count 3.15 10^6 /uL (4.18-5.48); Red Cell Distribution Width 15 % (10-15); White Blood Count 6.5 10^3/uL (3.5-10.8)
[2021-09-18] MEDS: Mometasone/Formoter 200/5 MDI INH SCH ×2 (06:02→18:25)
[2021-09-18 06:37] LABS: Calcium 8.4 mg/dL (8.6-10.3); Magnesium 1.9 mg/dL (1.9-2.7); Potassium 3.8 mmol/L (3.5-5.0); eGFR CKD-EPI 52.6 (>60)
[2021-09-18] MEDS: Sucralfate 1 gm SUSP 1 GM/10 ML UDC PO SCH ×4 (09:49→21:15)
[2021-09-18] MEDS: Morphine ER 15 mg TAB ** extended release PO SCH ×2 (09:50→20:58)
[2021-09-18] MEDS: Nystatin TOP POWDER 15 GM BTL TOPICAL SCH ×2 (09:50→21:03)
[2021-09-18] MEDS: Amoxicillin/Clavul 875/125 TAB (Augmentin 875 tab) PO SCH ×2 (09:55→21:00)
[2021-09-18] MEDS: CMCS: OMEGA-3 FATTY ACID 1000 mg(NF) PO SCH ×2 (09:56→21:02)
[2021-09-18] MEDS: Pentoxifylline CR 400 mg TAB 400 MG PO SCH ×3 (09:57→21:01)
[2021-09-18] MEDS: SPIRIVA Respimat (tiotropium) 2.5 mcg/inh Inhaler INH SCH (09:58)
[2021-09-18] MEDS: Albuterol HFA INHALER 8 gm MDI INH PRN (09:58)
[2021-09-18] MEDS: CMCS: Cyclosporine 0.05% OPHTH (NF) 0.4 ML VIAL BOTH EYES SCH ×2 (09:58→21:07)
[2021-09-18] MEDS: Insulin GLARGINE 100 un/ml 10 ml VIAL SUBCUT SCH ×2 (10:42→21:06)
[2021-09-18] MEDS ORDERED: Perflutren Lipid Microsphere 3 ML VIAL ONE (10:51)
[2021-09-19] MEDS: Mometasone/Formoter 200/5 MDI INH SCH ×2 (06:02→18:55)
[2021-09-19] MEDS: Sucralfate 1 gm SUSP 1 GM/10 ML UDC PO SCH ×4 (08:20→21:13)
[2021-09-19] MEDS: CMCS: OMEGA-3 FATTY ACID 1000 mg(NF) PO SCH ×2 (08:21→21:13)
[2021-09-19] MEDS: Pentoxifylline CR 400 mg TAB 400 MG PO SCH ×3 (08:23→21:09)
[2021-09-19] MEDS: Amoxicillin/Clavul 875/125 TAB (Augmentin 875 tab) PO SCH ×2 (08:25→21:12)
[2021-09-19] MEDS: Morphine ER 15 mg TAB ** extended release PO SCH ×2 (08:27→21:09)
[2021-09-19] MEDS: Insulin GLARGINE 100 un/ml 10 ml VIAL SUBCUT SCH ×2 (08:28→21:53)
[2021-09-19] MEDS: CMCS: Cyclosporine 0.05% OPHTH (NF) 0.4 ML VIAL BOTH EYES SCH ×2 (08:29→21:17)
[2021-09-19] MEDS: Nystatin TOP POWDER 15 GM BTL TOPICAL SCH ×2 (08:30→21:53)
[2021-09-19] MEDS: SPIRIVA Respimat (tiotropium) 2.5 mcg/inh Inhaler INH SCH (09:07)
[2021-09-20] MEDS: Pentoxifylline CR 400 mg TAB 400 MG PO SCH ×3 (09:54→21:18)
[2021-09-20] MEDS: Morphine ER 15 mg TAB ** extended release PO SCH ×2 (09:55→21:17)
[2021-09-20] MEDS: Insulin GLARGINE 100 un/ml 10 ml VIAL SUBCUT SCH ×2 (09:57→23:12)
[2021-09-20] MEDS: Amoxicillin/Clavul 875/125 TAB (Augmentin 875 tab) PO SCH ×2 (09:58→21:18)
[2021-09-20] MEDS: CMCS: Cyclosporine 0.05% OPHTH (NF) 0.4 ML VIAL BOTH EYES SCH ×2 (09:58→21:19)
[2021-09-20] MEDS: CMCS: OMEGA-3 FATTY ACID 1000 mg(NF) PO SCH ×2 (10:06→21:18)
[2021-09-20] MEDS: Nystatin TOP POWDER 15 GM BTL TOPICAL SCH ×2 (10:06→22:00)
[2021-09-20] MEDS: Sucralfate 1 gm SUSP 1 GM/10 ML UDC PO SCH ×4 (10:06→21:18)
[2021-09-20] MEDS: Mometasone/Formoter 200/5 MDI INH SCH ×2 (10:06→19:25)
[2021-09-20] MEDS: SPIRIVA Respimat (tiotropium) 2.5 mcg/inh Inhaler INH SCH (10:06)
[2021-09-20] MEDS: Albuterol HFA INHALER 8 gm MDI INH PRN (10:08)
[2021-09-21 06:02] LABS: ABS Eosinophils 0.1 10^3/ul (0-0.6); ABS Lymphocytes 0.5 10^3/ul (1.0-4.8); ABS Monocytes 0.3 10^3/ul (0-0.8); ABS Neutrophils 6.2 10^3/ul (1.5-7.7); Hematocrit 27 % (42-52); Hemoglobin 8.7 g/dL (14.0-18.0); Mean Corpuscular HGB Conc 33 g/dL (31-36); Mean Corpuscular Hemoglobin 29 pg (27-31); Mean Corpuscular Volume 87 fL (80-94); Mean Platelet Volume 6.4 fL (7.4-10.4); Platelet Count 233 10^3/uL (150-450); Red Blood Count 3.04 10^6 /uL (4.18-5.48); Red Cell Distribution Width 15 % (10-15); White Blood Count 7.2 10^3/uL (3.5-10.8)
[2021-09-21 06:48] LABS: Albumin 2.8 g/dL (3.2-5.2); Albumin/Globulin Ratio 1.2 (1-3); Globulin 2.4 g/dL (2-4); Potassium 4.2 mmol/L (3.5-5.0); Total Bilirubin 0.3 mg/dL (0.2-1.0); Total Protein 5.2 g/dL (6.4-8.9); eGFR CKD-EPI 56.6 (>60)
[2021-09-21] MEDS: SPIRIVA Respimat (tiotropium) 2.5 mcg/inh Inhaler INH SCH (08:45)
[2021-09-21] MEDS: Mometasone/Formoter 200/5 MDI INH SCH ×2 (08:45→21:41)
[2021-09-21] MEDS: Amoxicillin/Clavul 875/125 TAB (Augmentin 875 tab) PO SCH ×2 (10:47→21:36)
[2021-09-21] MEDS: Sucralfate 1 gm SUSP 1 GM/10 ML UDC PO SCH ×4 (10:47→21:39)
[2021-09-21] MEDS: Morphine ER 15 mg TAB ** extended release PO SCH ×2 (10:49→21:34)
[2021-09-21] MEDS: Pentoxifylline CR 400 mg TAB 400 MG PO SCH ×3 (10:49→21:32)
[2021-09-21] MEDS: CMCS: OMEGA-3 FATTY ACID 1000 mg(NF) PO SCH ×2 (10:49→21:38)
[2021-09-21] MEDS: CMCS: Cyclosporine 0.05% OPHTH (NF) 0.4 ML VIAL BOTH EYES SCH ×2 (10:50→21:29)
[2021-09-21] MEDS: Insulin GLARGINE 100 un/ml 10 ml VIAL SUBCUT SCH ×2 (10:50→21:40)
[2021-09-21] MEDS: Nystatin TOP POWDER 15 GM BTL TOPICAL SCH ×2 (10:55→21:43)
[2021-09-22] MEDS: Sucralfate 1 gm SUSP 1 GM/10 ML UDC PO SCH ×4 (09:53→21:15)
[2021-09-22] MEDS: CMCS: OMEGA-3 FATTY ACID 1000 mg(NF) PO SCH ×2 (09:53→20:49)
[2021-09-22] MEDS: Morphine ER 15 mg TAB ** extended release PO SCH ×2 (09:53→20:55)
[2021-09-22] MEDS: Pentoxifylline CR 400 mg TAB 400 MG PO SCH ×3 (09:55→20:58)
[2021-09-22] MEDS: CMCS: Cyclosporine 0.05% OPHTH (NF) 0.4 ML VIAL BOTH EYES SCH ×2 (09:56→21:16)
[2021-09-22] MEDS: Carbidopa/Levodop 25/100 MG TAB PO SCH ×2 (09:56→20:53)
[2021-09-22] MEDS: Insulin GLARGINE 100 un/ml 10 ml VIAL SUBCUT SCH ×2 (09:58→21:00)
[2021-09-22] MEDS: SPIRIVA Respimat (tiotropium) 2.5 mcg/inh Inhaler INH SCH (09:59)
[2021-09-22] MEDS: Mometasone/Formoter 200/5 MDI INH SCH ×2 (10:00→19:25)
[2021-09-22] MEDS: Nystatin TOP POWDER 15 GM BTL TOPICAL SCH ×2 (10:02→21:02)
[2021-09-22] MEDS: Polyethylene Glycol 3350 17 GM PACKET PO PRN (16:59)
[2021-09-23] MEDS: Mometasone/Formoter 200/5 MDI INH SCH ×2 (05:37→18:39)
[2021-09-23] MEDS: SPIRIVA Respimat (tiotropium) 2.5 mcg/inh Inhaler INH SCH (09:35)
[2021-09-23] MEDS: Sucralfate 1 gm SUSP 1 GM/10 ML UDC PO SCH ×4 (09:35→20:57)
[2021-09-23] MEDS: Carbidopa/Levodop 25/100 MG TAB PO SCH ×2 (09:36→20:55)
[2021-09-23] MEDS: Pentoxifylline CR 400 mg TAB 400 MG PO SCH ×3 (09:36→20:56)
[2021-09-23] MEDS: Morphine ER 15 mg TAB ** extended release PO SCH ×2 (09:36→20:54)
[2021-09-23] MEDS: Insulin GLARGINE 100 un/ml 10 ml VIAL SUBCUT SCH ×2 (09:41→20:59)
[2021-09-23] MEDS: CMCS: OMEGA-3 FATTY ACID 1000 mg(NF) PO SCH ×2 (10:17→20:57)
[2021-09-23] MEDS: CMCS: Cyclosporine 0.05% OPHTH (NF) 0.4 ML VIAL BOTH EYES SCH ×2 (10:18→19:58)
[2021-09-23] MEDS: Nystatin TOP POWDER 15 GM BTL TOPICAL SCH ×2 (12:19→21:04)
[2021-09-24] MEDS: Mometasone/Formoter 200/5 MDI INH SCH ×2 (05:58→20:11)
[2021-09-24] MEDS: Pentoxifylline CR 400 mg TAB 400 MG PO SCH ×3 (08:33→20:08)
[2021-09-24] MEDS: Carbidopa/Levodop 25/100 MG TAB PO SCH ×2 (08:33→20:08)
[2021-09-24] MEDS: Morphine ER 15 mg TAB ** extended release PO SCH ×2 (08:34→20:10)
[2021-09-24] MEDS: Insulin GLARGINE 100 un/ml 10 ml VIAL SUBCUT SCH ×2 (08:34→20:57)
[2021-09-24] MEDS: Sucralfate 1 gm SUSP 1 GM/10 ML UDC PO SCH ×4 (08:34→20:08)
[2021-09-24] MEDS: CMCS: OMEGA-3 FATTY ACID 1000 mg(NF) PO SCH ×2 (08:35→20:07)
[2021-09-24] MEDS: SPIRIVA Respimat (tiotropium) 2.5 mcg/inh Inhaler INH SCH (08:40)
[2021-09-24] MEDS: CMCS: Cyclosporine 0.05% OPHTH (NF) 0.4 ML VIAL BOTH EYES SCH ×2 (10:26→20:10)
[2021-09-24] MEDS: Nystatin TOP POWDER 15 GM BTL TOPICAL SCH ×2 (10:26→20:15)
[2021-09-24] MEDS: Magnesium Hydroxide LIQ 30 ML UDC PO PRN (17:18)
[2021-09-25 06:01] VITALS: BP 118/65
[2021-09-25] MEDS: Albuterol HFA INHALER 8 gm MDI INH PRN (09:49)
[2021-09-25] MEDS: Nystatin TOP POWDER 15 GM BTL TOPICAL SCH (09:51)
[2021-09-25] MEDS: Mometasone/Formoter 200/5 MDI INH SCH (09:51)
[2021-09-25] MEDS: Sucralfate 1 gm SUSP 1 GM/10 ML UDC PO SCH (09:51)
[2021-09-25] MEDS: Morphine ER 15 mg TAB ** extended release PO SCH (09:54)
[2021-09-25] MEDS: Carbidopa/Levodop 25/100 MG TAB PO SCH (09:55)
[2021-09-25] MEDS: CMCS: OMEGA-3 FATTY ACID 1000 mg(NF) PO SCH (09:56)
[2021-09-25] MEDS: Pentoxifylline CR 400 mg TAB 400 MG PO SCH (09:56)
[2021-09-25] MEDS: SPIRIVA Respimat (tiotropium) 2.5 mcg/inh Inhaler INH SCH (09:57)
[2021-09-25] MEDS: CMCS: Cyclosporine 0.05% OPHTH (NF) 0.4 ML VIAL BOTH EYES SCH (09:57)
[2021-09-25 10:12] LABS: Rapid COVID-19 Molecular Undetected (Undetected)
== END 2021-09-25 11:22 | DRG 377 ==
LOC: MED 14:02 → PMRU 09-08 08:23
PROVIDERS: ADMIT Physical Medicine & Rehabilitation; ATTEND Physical Medicine & Rehabilitation

== ENCOUNTER 2021-12-15 22:47 | Inpatient (IN) ==
[2021-12-15] MEDS ORDERED: Morphine 4 MG/ML VIAL (1 ml) IV ONE (23:12)
[2021-12-15 23:57] LABS: ABS Eosinophils 0.1 10^3/ul (0-0.6); ABS Lymphocytes 0.5 10^3/ul (1.0-4.8); ABS Monocytes 0.6 10^3/ul (0-0.8); ABS Neutrophils 10.1 10^3/ul (1.5-7.7); Eosinophil % 1.1 %; Hematocrit 37 % (42-52); Hemoglobin 11.4 g/dL (14.0-18.0); Mean Corpuscular HGB Conc 31 g/dL (31-36); Mean Corpuscular Hemoglobin 25 pg (27-31); Mean Corpuscular Volume 80 fL (80-94); Mean Platelet Volume 7.1 fL (7.4-10.4); Platelet Count 200 10^3/uL (150-450); Red Blood Count 4.65 10^6 /uL (4.18-5.48); Red Cell Distribution Width 16 % (10-15); White Blood Count 11.3 10^3/uL (3.5-10.8)
[2021-12-16 00:24] LABS: INR 1.11 (0.89-1.11)
[2021-12-16 00:44] LABS: Albumin 3.5 g/dL (3.2-5.2); Albumin/Globulin Ratio 1.4 (1-3); Calcium 9.5 mg/dL (8.6-10.3); Globulin 2.5 g/dL (2-4); Potassium 4.3 mmol/L (3.5-5.0); Total Bilirubin 0.4 mg/dL (0.2-1.0); eGFR CKD-EPI 56.6 (>60)
[2021-12-16] MEDS ORDERED: Heparin 5000 UNITS/ML 1 mL VIAL SUBCUT ONE (05:05)
[2021-12-16] MEDS: Acetaminophen IV 1 GM/100ML 1,000 MG/100 ML BAG IV SCH ×4 (05:10→22:15)
[2021-12-16] MEDS ORDERED: Dextrose 50% Syringe 50 ml 25 GM/50 ML SYRINGE IV PUSH PRN (05:31)
[2021-12-16] MEDS ORDERED: Nystatin TOP POWDER 15 GM BTL TOPICAL PRN (05:33)
[2021-12-16] MEDS ORDERED: Albuterol HFA INHALER 8 gm MDI INH PRN (05:33)
[2021-12-16] MEDS ORDERED: Heparin 5000 UNITS/ML 1 mL VIAL SUBCUT SCH (06:00)
[2021-12-16] MEDS ORDERED: Ammonium Lactate 12% 1 APPLIC TUBE TOPICAL PRN (06:18)
[2021-12-16] MEDS: D5NS 0.9% 1000 ml BAG 1,000 ML IV SCH ×2 (06:23→23:36)
[2021-12-16] MEDS ORDERED: Albuterol/Ipratropium NEB.SOL (2.5/0.5 MG) 3 ML NEB.SOLN INH PRN (06:25)
[2021-12-16] MEDS ORDERED: Triamcinolone 0.025% OINT 15 GM TUBE TOPICAL PRN (06:28)
[2021-12-16] MEDS ORDERED: Dextran 70/Hypromellose Tears Eye Drops 15 ml BTL (for Artificials Tears) BOTH EYES PRN (06:30)
[2021-12-16] MEDS ORDERED: Fenofibrate 145 mg TAB (NF) PO SCH (09:00)
[2021-12-16] MEDS ORDERED: Pentoxifylline CR 400 mg TAB 400 MG PO SCH (09:00)
[2021-12-16] MEDS: Mometasone/Formoter 200/5 MDI INH SCH ×2 (09:50→19:31)
[2021-12-16] MEDS: Insulin GLARGINE 100 un/ml 10 ml VIAL SUBCUT SCH ×2 (09:50→22:15)
[2021-12-16] MEDS: OMEGA ACID ETHYL ESTERS PO SCH (09:51)
[2021-12-16] MEDS: SPIRIVA Respimat (tiotropium) 2.5 mcg/inh Inhaler INH SCH (09:51)
[2021-12-16] MEDS: Morphine ER 15 mg TAB ** extended release PO SCH ×2 (10:11→22:13)
[2021-12-16] MEDS: Carbidopa/Levodop 25/100 MG TAB PO SCH ×2 (10:11→22:06)
[2021-12-16] MEDS ORDERED: Propofol 10 MG/ML 20 ML BTL ONE (11:44)
[2021-12-16] MEDS ORDERED: Lidocaine 2% PF 5 ML VIAL ONE (11:45)
[2021-12-16] MEDS: Pentoxifylline CR 400 mg TAB 400 MG PO SCH ×2 (12:36→22:13)
[2021-12-16] MEDS: CMCS: Cyclosporine 0.05% OPHTH (NF) 0.4 ML VIAL BOTH EYES SCH ×2 (12:36→22:04)
[2021-12-16] MEDS ORDERED: Clindamycin 900 MG/D5W BAG 900 MG/50 ML BAG IVPB ONE (12:53)
[2021-12-17] MEDS: OMEGA ACID ETHYL ESTERS PO SCH ×3 (01:55→21:35)
[2021-12-17] MEDS ORDERED: NS 0.9% 500 ml BAG 500 ML IV ONE (03:45)
[2021-12-17] MEDS: Acetaminophen IV 1 GM/100ML 1,000 MG/100 ML BAG IV SCH ×3 (04:06→21:19)
[2021-12-17 06:28] LABS: ABS Eosinophils 0.1 10^3/ul (0-0.6); ABS Lymphocytes 0.6 10^3/ul (1.0-4.8); ABS Monocytes 0.7 10^3/ul (0-0.8); ABS Neutrophils 10.3 10^3/ul (1.5-7.7); Eosinophil % 0.8 %; Hematocrit 25 % (42-52); Hemoglobin 7.8 g/dL (14.0-18.0); Lymphocyte % 4.9 %; Mean Corpuscular HGB Conc 31 g/dL (31-36); Mean Corpuscular Hemoglobin 24 pg (27-31); Mean Corpuscular Volume 78 fL (80-94); Mean Platelet Volume 7.3 fL (7.4-10.4); Platelet Count 217 10^3/uL (150-450); Red Blood Count 3.23 10^6 /uL (4.18-5.48); Red Cell Distribution Width 16 % (10-15); White Blood Count 11.7 10^3/uL (3.5-10.8)
[2021-12-17 06:50] LABS: Calcium 8.4 mg/dL (8.6-10.3); Potassium 4.1 mmol/L (3.5-5.0); eGFR CKD-EPI 42.6 (>60)
[2021-12-17] MEDS ORDERED: NS 0.9% 1000 ml BAG 1,000 ML IV SCH (08:30)
[2021-12-17] MEDS: Morphine ER 15 mg TAB ** extended release PO SCH ×2 (08:30→21:12)
[2021-12-17] MEDS: Carbidopa/Levodop 25/100 MG TAB PO SCH ×2 (08:31→21:17)
[2021-12-17] MEDS: Pentoxifylline CR 400 mg TAB 400 MG PO SCH ×3 (08:31→21:18)
[2021-12-17] MEDS: Mometasone/Formoter 200/5 MDI INH SCH ×2 (08:32→18:52)
[2021-12-17] MEDS: Enoxaparin 40 MG/0.4 ML SYR SUBCUT SCH (08:32)
[2021-12-17] MEDS: Insulin GLARGINE 100 un/ml 10 ml VIAL SUBCUT SCH ×2 (08:32→21:39)
[2021-12-17] MEDS: RIVASTIGMINE 4.6 MG TRANSDERM SCH (08:34)
[2021-12-17] MEDS: SPIRIVA Respimat (tiotropium) 2.5 mcg/inh Inhaler INH SCH (09:19)
[2021-12-17] MEDS: CMCS: Cyclosporine 0.05% OPHTH (NF) 0.4 ML VIAL BOTH EYES SCH ×2 (12:33→21:25)
[2021-12-17] MEDS: Magnesium Hydroxide LIQ 30 ML UDC PO PRN (23:32)
[2021-12-18] MEDS: Acetaminophen IV 1 GM/100ML 1,000 MG/100 ML BAG IV SCH ×4 (01:55→21:52)
[2021-12-18 06:19] LABS: ABS Basophils 0.1 10^3/ul (0-0.2); ABS Eosinophils 0.3 10^3/ul (0-0.6); ABS Lymphocytes 0.5 10^3/ul (1.0-4.8); ABS Monocytes 0.5 10^3/ul (0-0.8); Eosinophil % 4.7 %; Hematocrit 20 % (42-52); Hemoglobin 6.3 g/dL (14.0-18.0); Lymphocyte % 6.8 %; Mean Corpuscular HGB Conc 31 g/dL (31-36); Mean Corpuscular Hemoglobin 24 pg (27-31); Mean Corpuscular Volume 78 fL (80-94); Mean Platelet Volume 7.2 fL (7.4-10.4); Platelet Count 176 10^3/uL (150-450); Red Blood Count 2.59 10^6 /uL (4.18-5.48); Red Cell Distribution Width 16 % (10-15); White Blood Count 7.4 10^3/uL (3.5-10.8)
[2021-12-18 06:27] LABS: Calcium 8.2 mg/dL (8.6-10.3); Potassium 3.8 mmol/L (3.5-5.0)
[2021-12-18 06:32] LABS: eGFR CKD-EPI 48.7 (>60)
[2021-12-18] MEDS: SPIRIVA Respimat (tiotropium) 2.5 mcg/inh Inhaler INH SCH (08:14)
[2021-12-18] MEDS: Mometasone/Formoter 200/5 MDI INH SCH ×2 (08:14→19:51)
[2021-12-18] MEDS: Enoxaparin 40 MG/0.4 ML SYR SUBCUT SCH (09:12)
[2021-12-18] MEDS: RIVASTIGMINE 4.6 MG TRANSDERM SCH (09:13)
[2021-12-18] MEDS: Insulin GLARGINE 100 un/ml 10 ml VIAL SUBCUT SCH (09:16)
[2021-12-18] MEDS: Magnesium Hydroxide LIQ 30 ML UDC PO PRN (09:17)
[2021-12-18] MEDS: CMCS: Cyclosporine 0.05% OPHTH (NF) 0.4 ML VIAL BOTH EYES SCH ×2 (09:18→22:01)
[2021-12-18] MEDS: Pentoxifylline CR 400 mg TAB 400 MG PO SCH ×3 (09:19→21:30)
[2021-12-18] MEDS: Carbidopa/Levodop 25/100 MG TAB PO SCH ×2 (09:19→21:30)
[2021-12-18] MEDS: Morphine ER 15 mg TAB ** extended release PO SCH ×2 (09:19→23:19)
[2021-12-18] MEDS: OMEGA ACID ETHYL ESTERS PO SCH ×2 (09:20→23:20)
[2021-12-18] MEDS: Polyethylene Glycol 3350 17 GM PACKET PO PRN (15:20)
[2021-12-18 15:36] LABS: Hematocrit 21 % (42-52); Hemoglobin 6.8 g/dL (14.0-18.0)
[2021-12-18 20:11] LABS: Hematocrit 22 % (42-52)
[2021-12-19] MEDS: Insulin GLARGINE 100 un/ml 10 ml VIAL SUBCUT SCH ×3 (00:30→21:35)
[2021-12-19] MEDS: Magnesium Hydroxide LIQ 30 ML UDC PO PRN (02:06)
[2021-12-19] MEDS: Acetaminophen IV 1 GM/100ML 1,000 MG/100 ML BAG IV SCH ×4 (02:22→21:50)
[2021-12-19 06:15] LABS: ABS Eosinophils 0.3 10^3/ul (0-0.6); ABS Lymphocytes 0.3 10^3/ul (1.0-4.8); ABS Monocytes 0.3 10^3/ul (0-0.8); ABS Neutrophils 5.7 10^3/ul (1.5-7.7); Eosinophil % 4.3 %; Hematocrit 21 % (42-52); Lymphocyte % 5.2 %; Mean Corpuscular HGB Conc 34 g/dL (31-36); Mean Corpuscular Hemoglobin 26 pg (27-31); Mean Corpuscular Volume 78 fL (80-94); Mean Platelet Volume 7.3 fL (7.4-10.4); Platelet Count 162 10^3/uL (150-450); Red Blood Count 2.68 10^6 /uL (4.18-5.48); Red Cell Distribution Width 16 % (10-15); White Blood Count 6.7 10^3/uL (3.5-10.8)
[2021-12-19 06:43] LABS: Calcium 8.3 mg/dL (8.6-10.3); Potassium 4.4 mmol/L (3.5-5.0)
[2021-12-19] MEDS: Mometasone/Formoter 200/5 MDI INH SCH ×2 (07:23→19:51)
[2021-12-19] MEDS: SPIRIVA Respimat (tiotropium) 2.5 mcg/inh Inhaler INH SCH (07:23)
[2021-12-19] MEDS: Morphine ER 15 mg TAB ** extended release PO SCH ×2 (10:18→21:32)
[2021-12-19] MEDS: Pentoxifylline CR 400 mg TAB 400 MG PO SCH ×3 (10:20→21:33)
[2021-12-19] MEDS: OMEGA ACID ETHYL ESTERS PO SCH ×2 (10:31→21:51)
[2021-12-19] MEDS: Carbidopa/Levodop 25/100 MG TAB PO SCH ×2 (10:32→21:30)
[2021-12-19] MEDS: RIVASTIGMINE 4.6 MG TRANSDERM SCH (10:36)
[2021-12-19] MEDS: CMCS: Cyclosporine 0.05% OPHTH (NF) 0.4 ML VIAL BOTH EYES SCH ×2 (10:38→21:44)
[2021-12-19] MEDS: Enoxaparin 40 MG/0.4 ML SYR SUBCUT SCH (11:32)
[2021-12-19] MEDS ORDERED: Furosemide 20 mg/2 ml IV VIAL IV SLOW PU ONE (16:45)
[2021-12-19] MEDS: Polyethylene Glycol 3350 17 GM PACKET PO PRN (21:36)
[2021-12-20] MEDS: Acetaminophen IV 1 GM/100ML 1,000 MG/100 ML BAG IV SCH ×4 (03:11→22:10)
[2021-12-20 05:54] LABS: ABS Eosinophils 0.3 10^3/ul (0-0.6); ABS Lymphocytes 0.6 10^3/ul (1.0-4.8); ABS Monocytes 0.4 10^3/ul (0-0.8); ABS Neutrophils 4.7 10^3/ul (1.5-7.7); Eosinophil % 5.5 %; Hematocrit 21 % (42-52); Hemoglobin 6.7 g/dL (14.0-18.0); Lymphocyte % 9.5 %; Mean Corpuscular HGB Conc 32 g/dL (31-36); Mean Corpuscular Hemoglobin 25 pg (27-31); Mean Corpuscular Volume 78 fL (80-94); Platelet Count 207 10^3/uL (150-450); Red Blood Count 2.68 10^6 /uL (4.18-5.48); Red Cell Distribution Width 17 % (10-15)
[2021-12-20 06:30] LABS: Calcium 8.5 mg/dL (8.6-10.3); Potassium 4.5 mmol/L (3.5-5.0); eGFR CKD-EPI 57.7 (>60)
[2021-12-20] MEDS: SPIRIVA Respimat (tiotropium) 2.5 mcg/inh Inhaler INH SCH (07:46)
[2021-12-20] MEDS: Mometasone/Formoter 200/5 MDI INH SCH ×2 (07:47→19:00)
[2021-12-20] MEDS ORDERED: Senna TAB 8.6 mg TAB PO PRN (08:31)
[2021-12-20] MEDS ORDERED: CMCS: Methylnaltrexone SQ (NF) 12 MG/0.6 ML VIAL SUBCUT ONE (08:34)
[2021-12-20] MEDS: Insulin GLARGINE 100 un/ml 10 ml VIAL SUBCUT SCH ×2 (10:07→22:32)
[2021-12-20] MEDS: Carbidopa/Levodop 25/100 MG TAB PO SCH ×2 (10:10→22:10)
[2021-12-20] MEDS: Pentoxifylline CR 400 mg TAB 400 MG PO SCH ×3 (10:11→22:10)
[2021-12-20] MEDS: Morphine ER 15 mg TAB ** extended release PO SCH ×2 (10:14→22:11)
[2021-12-20] MEDS: OMEGA ACID ETHYL ESTERS PO SCH ×2 (10:24→22:11)
[2021-12-20] MEDS: Magnesium Hydroxide LIQ 30 ML UDC PO SCH ×2 (10:27→22:12)
[2021-12-20] MEDS: Enoxaparin 40 MG/0.4 ML SYR SUBCUT SCH (10:28)
[2021-12-20] MEDS: CMCS: Cyclosporine 0.05% OPHTH (NF) 0.4 ML VIAL BOTH EYES SCH ×3 (10:30→22:19)
[2021-12-20] MEDS: RIVASTIGMINE 4.6 MG TRANSDERM SCH (11:55)
[2021-12-20 13:20] LABS: Ferritin 56.5 ng/mL (24-336)
[2021-12-20] MEDS: Furosemide 20 mg/2 ml IV VIAL IV SLOW PU SCH (16:50)
[2021-12-20 17:05] LABS: Hematocrit 27 % (42-52); Hemoglobin 8.5 g/dL (14.0-18.0)
[2021-12-20] MEDS: Iron Sucrose 200 MG in NS 0.9% 100 ml BAG 100 ML IVPB SCH (18:03)
[2021-12-21] MEDS: Acetaminophen IV 1 GM/100ML 1,000 MG/100 ML BAG IV SCH ×4 (02:59→20:24)
[2021-12-21] MEDS: SPIRIVA Respimat (tiotropium) 2.5 mcg/inh Inhaler INH SCH (08:18)
[2021-12-21] MEDS: Mometasone/Formoter 200/5 MDI INH SCH ×2 (08:18→19:04)
[2021-12-21] MEDS ORDERED: Iodixanol (CONTRAST) 320 MG/ML 100 ML SDV IV ONE (08:47)
[2021-12-21 08:51] LABS: Hematocrit 29 % (42-52); Hemoglobin 9.3 g/dL (14.0-18.0); Mean Corpuscular HGB Conc 32 g/dL (31-36); Mean Corpuscular Hemoglobin 25 pg (27-31); Mean Corpuscular Volume 78 fL (80-94); Mean Platelet Volume 6.9 fL (7.4-10.4); Platelet Count 283 10^3/uL (150-450); Red Cell Distribution Width 17 % (10-15); White Blood Count 9.2 10^3/uL (3.5-10.8)
[2021-12-21] MEDS: Furosemide 20 mg/2 ml IV VIAL IV SLOW PU SCH (09:14)
[2021-12-21] MEDS: Carbidopa/Levodop 25/100 MG TAB PO SCH ×2 (09:14→21:41)
[2021-12-21] MEDS: Insulin GLARGINE 100 un/ml 10 ml VIAL SUBCUT SCH ×2 (09:16→23:16)
[2021-12-21] MEDS: Magnesium Hydroxide LIQ 30 ML UDC PO SCH ×2 (09:33→21:42)
[2021-12-21] MEDS: CMCS: Cyclosporine 0.05% OPHTH (NF) 0.4 ML VIAL BOTH EYES SCH ×2 (09:34→21:41)
[2021-12-21] MEDS: Morphine ER 15 mg TAB ** extended release PO SCH ×2 (09:35→21:42)
[2021-12-21] MEDS: OMEGA ACID ETHYL ESTERS PO SCH ×2 (09:37→21:42)
[2021-12-21] MEDS: Pentoxifylline CR 400 mg TAB 400 MG PO SCH ×3 (09:38→21:43)
[2021-12-21 09:40] LABS: Albumin/Globulin Ratio 1.2 (1-3); Calcium 8.9 mg/dL (8.6-10.3); Globulin 2.6 g/dL (2-4); Magnesium 2.3 mg/dL (1.9-2.7); Potassium 4.5 mmol/L (3.5-5.0); Total Bilirubin 0.9 mg/dL (0.2-1.0); Total Protein 5.6 g/dL (6.4-8.9); eGFR CKD-EPI 52.6 (>60)
[2021-12-21] MEDS: RIVASTIGMINE 4.6 MG TRANSDERM SCH (09:42)
[2021-12-21 11:38] LABS: ABS Eosinophils 0.1 10^3/ul (0-0.6); ABS Lymphocytes 0.4 10^3/ul (1.0-4.8); ABS Monocytes 0.6 10^3/ul (0-0.8); ABS Neutrophils 8.1 10^3/ul (1.5-7.7); Eosinophil % 0.9 %; Lymphocyte % 4.2 %
[2021-12-21 11:39] LABS: Microcytosis 1+
[2021-12-21 11:40] LABS: Anisocytosis 1+; Hypochromasia 1+; Polychromasia 1+
[2021-12-21] MEDS ORDERED: Piperacillin/Tazobac ADVAN 3.375 GM in NS 0.9% 100 ml BAG 100 ML IV ONE (11:52)
[2021-12-21] MEDS ORDERED: Zosyn per Pharmacy NOTE FOLLOW UP SCH (12:00)
[2021-12-21 14:10] LABS: Urine Appearance Cloudy; Urine Color Red; Urine Specific Gravity 1.018 (1.002-1.030)
[2021-12-21 14:25] LABS: Urine Bacteria 3+ (Absent); Urine Red Blood Cell 3+(>10/hpf) (Absent); Urine White Blood Cell 3+(>20/hpf) (Absent)
[2021-12-21] MEDS: Iron Sucrose 200 MG in NS 0.9% 100 ml BAG 100 ML IVPB SCH (14:33)
[2021-12-21] MEDS: HYDROmorphone 0.5 MG/0.5 ML SYRINGE IV SLOW PU PRN (16:15)
[2021-12-21] MEDS: ZOSYN 3.375 GM Q8H per EXTENDED INFUSION IV SCH (21:38)
[2021-12-22] MEDS: HYDROmorphone 0.5 MG/0.5 ML SYRINGE IV SLOW PU PRN (01:19)
[2021-12-22] MEDS: Acetaminophen IV 1 GM/100ML 1,000 MG/100 ML BAG IV SCH ×4 (02:16→20:01)
[2021-12-22] MEDS ORDERED: Furosemide 20 mg/2 ml IV VIAL IV SLOW PU ONE (02:34)
[2021-12-22] MEDS: ZOSYN 3.375 GM Q8H per EXTENDED INFUSION IV SCH ×3 (04:22→20:54)
[2021-12-22 06:34] LABS: ABS Eosinophils 0.1 10^3/ul (0-0.6); ABS Lymphocytes 0.3 10^3/ul (1.0-4.8); ABS Monocytes 0.5 10^3/ul (0-0.8); ABS Neutrophils 10.7 10^3/ul (1.5-7.7); Eosinophil % 0.6 %; Hematocrit 26 % (42-52); Hemoglobin 8.6 g/dL (14.0-18.0); Mean Corpuscular HGB Conc 33 g/dL (31-36); Mean Corpuscular Hemoglobin 26 pg (27-31); Mean Corpuscular Volume 79 fL (80-94); Mean Platelet Volume 6.4 fL (7.4-10.4); Platelet Count 327 10^3/uL (150-450); Red Cell Distribution Width 17 % (10-15); White Blood Count 11.7 10^3/uL (3.5-10.8)
[2021-12-22] MEDS: Mometasone/Formoter 200/5 MDI INH SCH ×2 (07:00→19:13)
[2021-12-22] MEDS: SPIRIVA Respimat (tiotropium) 2.5 mcg/inh Inhaler INH SCH (07:01)
[2021-12-22 07:15] LABS: Calcium 8.7 mg/dL (8.6-10.3); Magnesium 2.3 mg/dL (1.9-2.7); Phosphorus 4.7 mg/dL (2.5-5.0); Potassium 4.1 mmol/L (3.5-5.0); eGFR CKD-EPI 42.3 (>60)
[2021-12-22] MEDS ORDERED: Morphine ER 15 mg TAB ** extended release PO SCH (09:00)
[2021-12-22] MEDS: Lactated Ringers 1000 ml BAG 1,000 ML IV SCH (09:30)
[2021-12-22 09:35] LABS: Urine Appearance Turbid; Urine Bacteria Absent (Absent); Urine Bilirubin Negative (Negative); Urine Blood 3+ (Negative); Urine Glucose Negative (Negative); Urine Ketones Negative (Negative); Urine Nitrite Negative (Negative); Urine Protein 2+(100 mg/dL) (Negative); Urine Red Blood Cell 3+(>10/hpf) (Absent); Urine Specific Gravity 1.024 (1.002-1.030); Urine Urobilinogen Negative (Negative); Urine White Blood Cell 3+(>20/hpf) (Absent)
[2021-12-22 09:56] LABS: Urine Color Red
[2021-12-22] MEDS: Carbidopa/Levodop 25/100 MG TAB PO SCH ×2 (12:19→21:15)
[2021-12-22] MEDS: CMCS: Cyclosporine 0.05% OPHTH (NF) 0.4 ML VIAL BOTH EYES SCH ×2 (12:19→21:43)
[2021-12-22] MEDS: Pentoxifylline CR 400 mg TAB 400 MG PO SCH ×3 (12:20→21:48)
[2021-12-22] MEDS: OMEGA ACID ETHYL ESTERS PO SCH (12:20)
[2021-12-22] MEDS: Magnesium Hydroxide LIQ 30 ML UDC PO SCH ×2 (12:20→21:27)
[2021-12-22] MEDS: RIVASTIGMINE 4.6 MG TRANSDERM SCH (12:31)
[2021-12-22] MEDS: Furosemide 40 mg/4 ml IV VIAL IV SLOW PU SCH (12:32)
[2021-12-22 14:15] LABS: Hematocrit 27 % (42-52); Hemoglobin 8.6 g/dL (14.0-18.0)
[2021-12-22] MEDS: Insulin GLARGINE 100 un/ml 10 ml VIAL SUBCUT SCH (21:11)
[2021-12-23] MEDS: Lactated Ringers 1000 ml BAG 1,000 ML IV SCH ×2 (01:14→17:07)
[2021-12-23] MEDS: Acetaminophen IV 1 GM/100ML 1,000 MG/100 ML BAG IV SCH ×4 (02:10→20:11)
[2021-12-23] MEDS: ZOSYN 3.375 GM Q8H per EXTENDED INFUSION IV SCH (04:21)
[2021-12-23 05:55] LABS: ABS Eosinophils 0.3 10^3/ul (0-0.6); ABS Lymphocytes 0.5 10^3/ul (1.0-4.8); ABS Monocytes 0.5 10^3/ul (0-0.8); ABS Neutrophils 12.1 10^3/ul (1.5-7.7); Eosinophil % 2.3 %; Hematocrit 24 % (42-52); Hemoglobin 7.5 g/dL (14.0-18.0); Lymphocyte % 3.4 %; Mean Corpuscular HGB Conc 32 g/dL (31-36); Mean Corpuscular Hemoglobin 25 pg (27-31); Mean Corpuscular Volume 80 fL (80-94); Mean Platelet Volume 6.9 fL (7.4-10.4); Platelet Count 356 10^3/uL (150-450); Red Blood Count 2.97 10^6 /uL (4.18-5.48); Red Cell Distribution Width 17 % (10-15); White Blood Count 13.4 10^3/uL (3.5-10.8)
[2021-12-23 06:12] LABS: ALT < 3 U/L (7-52); AST 7 U/L (13-39); Albumin 2.5 g/dL (3.2-5.2); Albumin/Globulin Ratio 1.1 (1-3); Alkaline Phosphatase 48 U/L (35-149); Anion Gap 10 mmol/L (2-11); Blood Urea Nitrogen 40 mg/dL (6-24); CO2 Carbon Dioxide 28 mmol/L (22-32); Calcium 8.4 mg/dL (8.6-10.3); Chloride 102 mmol/L (101-111); Globulin 2.2 g/dL (2-4); Glucose 139 mg/dL (70-100); Magnesium 2.1 mg/dL (1.9-2.7); Potassium 3.7 mmol/L (3.5-5.0); Sodium 140 mmol/L (135-145); Total Protein 4.7 g/dL (6.4-8.9); eGFR CKD-EPI 44.6 (>60)
[2021-12-23] MEDS: SPIRIVA Respimat (tiotropium) 2.5 mcg/inh Inhaler INH SCH ×2 (06:58→07:28)
[2021-12-23] MEDS: Mometasone/Formoter 200/5 MDI INH SCH ×2 (06:58→19:06)
[2021-12-23] MEDS: Furosemide 40 mg/4 ml IV VIAL IV SLOW PU SCH (09:03)
[2021-12-23] MEDS: Pentoxifylline CR 400 mg TAB 400 MG PO SCH ×3 (09:04→21:51)
[2021-12-23] MEDS: Carbidopa/Levodop 25/100 MG TAB PO SCH ×2 (09:04→21:51)
[2021-12-23] MEDS: CMCS: Cyclosporine 0.05% OPHTH (NF) 0.4 ML VIAL BOTH EYES SCH ×3 (09:05→23:43)
[2021-12-23] MEDS: Magnesium Hydroxide LIQ 30 ML UDC PO SCH ×2 (09:06→23:43)
[2021-12-23] MEDS: RIVASTIGMINE 4.6 MG TRANSDERM SCH (09:27)
[2021-12-23] MEDS: cefTRIAXone 1 gm/50 mL D5W 1 GM/50 ML BAG IV SCH (12:34)
[2021-12-23] MEDS: Insulin GLARGINE 100 un/ml 10 ml VIAL SUBCUT SCH (21:49)
[2021-12-23] MEDS: HYDROmorphone 0.5 MG/0.5 ML SYRINGE IV SLOW PU PRN (23:57)
[2021-12-24] MEDS: Acetaminophen IV 1 GM/100ML 1,000 MG/100 ML BAG IV SCH ×4 (02:35→23:33)
[2021-12-24 06:16] LABS: ABS Eosinophils 0.6 10^3/ul (0-0.6); ABS Lymphocytes 0.7 10^3/ul (1.0-4.8); ABS Monocytes 0.4 10^3/ul (0-0.8); ABS Neutrophils 9.2 10^3/ul (1.5-7.7); Eosinophil % 5.2 %; Hematocrit 21 % (42-52); Hemoglobin 6.7 g/dL (14.0-18.0); Lymphocyte % 6.4 %; Mean Corpuscular HGB Conc 31 g/dL (31-36); Mean Corpuscular Hemoglobin 25 pg (27-31); Mean Corpuscular Volume 80 fL (80-94); Mean Platelet Volume 6.6 fL (7.4-10.4); Platelet Count 328 10^3/uL (150-450); Red Blood Count 2.68 10^6 /uL (4.18-5.48); Red Cell Distribution Width 18 % (10-15)
[2021-12-24 06:59] LABS: Calcium 8.2 mg/dL (8.6-10.3); Magnesium 2.1 mg/dL (1.9-2.7); Potassium 3.6 mmol/L (3.5-5.0); eGFR CKD-EPI 58.2 (>60)
[2021-12-24] MEDS: Lactated Ringers 1000 ml BAG 1,000 ML IV SCH (08:06)
[2021-12-24] MEDS: SPIRIVA Respimat (tiotropium) 2.5 mcg/inh Inhaler INH SCH (09:04)
[2021-12-24] MEDS: Mometasone/Formoter 200/5 MDI INH SCH ×2 (09:04→21:39)
[2021-12-24] MEDS: CMCS: Cyclosporine 0.05% OPHTH (NF) 0.4 ML VIAL BOTH EYES SCH ×3 (09:39→22:14)
[2021-12-24] MEDS: Carbidopa/Levodop 25/100 MG TAB PO SCH ×2 (09:43→22:13)
[2021-12-24] MEDS: Pentoxifylline CR 400 mg TAB 400 MG PO SCH ×3 (09:45→22:06)
[2021-12-24] MEDS: Magnesium Hydroxide LIQ 30 ML UDC PO SCH (09:48)
[2021-12-24] MEDS: Furosemide 40 mg/4 ml IV VIAL IV SLOW PU SCH (09:48)
[2021-12-24] MEDS: RIVASTIGMINE 4.6 MG TRANSDERM SCH (09:50)
[2021-12-24] MEDS: cefTRIAXone 1 gm/50 mL D5W 1 GM/50 ML BAG IV SCH (10:45)
[2021-12-24 12:10] LABS: Hematocrit 21 % (42-52); Hemoglobin 6.6 g/dL (14.0-18.0)
[2021-12-24] MEDS ORDERED: Furosemide 20 mg/2 ml IV VIAL IV SLOW PU ONE (13:44)
[2021-12-24] MEDS: Insulin GLARGINE 100 un/ml 10 ml VIAL SUBCUT SCH (22:04)
[2021-12-25] MEDS: Lactated Ringers 1000 ml BAG 1,000 ML IV SCH (00:48)
[2021-12-25] MEDS: Acetaminophen IV 1 GM/100ML 1,000 MG/100 ML BAG IV SCH ×4 (02:40→19:34)
[2021-12-25 07:07] LABS: Hematocrit 24 % (42-52); Hemoglobin 7.7 g/dL (14.0-18.0); Mean Corpuscular HGB Conc 32 g/dL (31-36); Mean Corpuscular Hemoglobin 27 pg (27-31); Mean Corpuscular Volume 82 fL (80-94); Platelet Count 314 10^3/uL (150-450); Red Cell Distribution Width 17 % (10-15); White Blood Count 9.7 10^3/uL (3.5-10.8)
[2021-12-25 07:33] LABS: Calcium 8.2 mg/dL (8.6-10.3); Potassium 3.7 mmol/L (3.5-5.0)
[2021-12-25 07:36] LABS: Anisocytosis 1+
[2021-12-25 07:38] LABS: ABS Eosinophils 0.4 10^3/ul (0-0.6); ABS Lymphocytes 0.6 10^3/ul (1.0-4.8); ABS Monocytes 0.5 10^3/ul (0-0.8); ABS Neutrophils 8.2 10^3/ul (1.5-7.7); Lymphocyte % 6.2 %
[2021-12-25 07:39] LABS: eGFR CKD-EPI 69.4 (>60)
[2021-12-25] MEDS: SPIRIVA Respimat (tiotropium) 2.5 mcg/inh Inhaler INH SCH (08:06)
[2021-12-25] MEDS: Mometasone/Formoter 200/5 MDI INH SCH ×2 (08:06→21:21)
[2021-12-25] MEDS: Carbidopa/Levodop 25/100 MG TAB PO SCH ×2 (09:20→22:30)
[2021-12-25] MEDS: Pentoxifylline CR 400 mg TAB 400 MG PO SCH ×3 (09:20→22:30)
[2021-12-25] MEDS: Furosemide 40 mg/4 ml IV VIAL IV SLOW PU SCH (09:22)
[2021-12-25] MEDS: RIVASTIGMINE 4.6 MG TRANSDERM SCH (09:29)
[2021-12-25] MEDS: CMCS: Cyclosporine 0.05% OPHTH (NF) 0.4 ML VIAL BOTH EYES SCH ×2 (10:20→22:41)
[2021-12-25] MEDS: cefTRIAXone 1 gm/50 mL D5W 1 GM/50 ML BAG IV SCH (10:53)
[2021-12-25] MEDS: Iron Sucrose 200 MG in NS 0.9% 100 ml BAG 100 ML IVPB SCH (12:30)
[2021-12-25] MEDS: Enoxaparin 40 MG/0.4 ML SYR SUBCUT SCH (12:44)
[2021-12-25 13:11] LABS: Rapid COVID-19 Molecular Undetected (Undetected)
[2021-12-25] MEDS: HYDROmorphone 0.5 MG/0.5 ML SYRINGE IV SLOW PU PRN (19:34)
[2021-12-25] MEDS: Insulin GLARGINE 100 un/ml 10 ml VIAL SUBCUT SCH (22:29)
[2021-12-26] MEDS: Acetaminophen IV 1 GM/100ML 1,000 MG/100 ML BAG IV SCH ×3 (03:04→13:07)
[2021-12-26 07:20] LABS: Hematocrit 27 % (42-52); Hemoglobin 8.7 g/dL (14.0-18.0); Mean Corpuscular HGB Conc 32 g/dL (31-36); Mean Corpuscular Hemoglobin 26 pg (27-31); Mean Corpuscular Volume 82 fL (80-94); Mean Platelet Volume 6.7 fL (7.4-10.4); Platelet Count 384 10^3/uL (150-450); Red Blood Count 3.31 10^6 /uL (4.18-5.48); Red Cell Distribution Width 18 % (10-15); White Blood Count 9.8 10^3/uL (3.5-10.8)
[2021-12-26] MEDS ORDERED: Furosemide 20 mg/2 ml IV VIAL IV ONE (07:43)
[2021-12-26 07:46] LABS: Calcium 8.5 mg/dL (8.6-10.3); Potassium 3.8 mmol/L (3.5-5.0); eGFR CKD-EPI 75.2 (>60)
[2021-12-26 08:37] LABS: Anisocytosis 1+; Hypochromasia 1+
[2021-12-26 08:40] LABS: ABS Eosinophils 0.3 10^3/ul (0-0.6); ABS Lymphocytes 0.6 10^3/ul (1.0-4.8); ABS Monocytes 0.6 10^3/ul (0-0.8); ABS Neutrophils 8.3 10^3/ul (1.5-7.7); Eosinophil % 2.6 %; Lymphocyte % 6.1 %; Nucleated Red Blood Cells % 0.1
[2021-12-26] MEDS: Mometasone/Formoter 200/5 MDI INH SCH (08:47)
[2021-12-26] MEDS: SPIRIVA Respimat (tiotropium) 2.5 mcg/inh Inhaler INH SCH (08:47)
[2021-12-26] MEDS: Iron Sucrose 200 MG in NS 0.9% 100 ml BAG 100 ML IVPB SCH (10:08)
[2021-12-26] MEDS: CMCS: Cyclosporine 0.05% OPHTH (NF) 0.4 ML VIAL BOTH EYES SCH (10:32)
[2021-12-26] MEDS: Carbidopa/Levodop 25/100 MG TAB PO SCH (10:40)
[2021-12-26] MEDS: Pentoxifylline CR 400 mg TAB 400 MG PO SCH ×2 (10:46→13:35)
[2021-12-26] MEDS: RIVASTIGMINE 4.6 MG TRANSDERM SCH (10:46)
[2021-12-26] MEDS: cefTRIAXone 1 gm/50 mL D5W 1 GM/50 ML BAG IV SCH (11:14)
[2021-12-26] MEDS: Enoxaparin 40 MG/0.4 ML SYR SUBCUT SCH (12:31)
[2021-12-26 13:00] VITALS: BP 148/80
== END 2021-12-26 14:20 | DRG 480 ==
LOC: ED 22:47 → EDHOLD 12-16 03:29 → SUATTDRO 12-16 03:29 → SSU 12-16 08:59
PROVIDERS: ADMIT Internal Medicine; ATTEND Internal Medicine

== ENCOUNTER 2022-03-22 08:15 | Inpatient (IN) ==
[2022-03-22] MEDS ORDERED: Albuterol HFA INHALER 8 gm MDI INH ONE (08:31)
[2022-03-22] MEDS ORDERED: Albuterol/Ipratropium NEB.SOL (2.5/0.5 MG) 3 ML NEB.SOLN INH ONE (08:31)
[2022-03-22 09:27] LABS: ABS Eosinophils 0.1 10^3/ul (0-0.6); ABS Lymphocytes 0.3 10^3/ul (1.0-4.8); ABS Monocytes 0.6 10^3/ul (0-0.8); ABS Neutrophils 5.5 10^3/ul (1.5-7.7); Hematocrit 38 % (42-52); Hemoglobin 12.5 g/dL (14.0-18.0); Lymphocyte % 5.4 %; Mean Corpuscular HGB Conc 33 g/dL (31-36); Mean Corpuscular Hemoglobin 27 pg (27-31); Mean Corpuscular Volume 84 fL (80-94); Mean Platelet Volume 7.2 fL (7.4-10.4); Platelet Count 227 10^3/uL (150-450); Red Blood Count 4.55 10^6 /uL (4.18-5.48); Red Cell Distribution Width 17 % (10-15); White Blood Count 6.5 10^3/uL (3.5-10.8)
[2022-03-22 10:09] LABS: Albumin 3.4 g/dL (3.2-5.2); Albumin/Globulin Ratio 1.3 (1-3); Calcium 9.8 mg/dL (8.6-10.3); Creatinine, Serum 1.18 mg/dL (0.67-1.17); Globulin 2.7 g/dL (2-4); Potassium 4.4 mmol/L (3.5-5.0); Total Bilirubin 0.5 mg/dL (0.2-1.0); Total Protein 6.1 g/dL (6.4-8.9); eGFR CKD-EPI 62.4 (>60)
[2022-03-22] MEDS ORDERED: Albuterol/Ipratropium NEB.SOL (2.5/0.5 MG) 3 ML NEB.SOLN INH PRN (12:08)
[2022-03-22] MEDS ORDERED: Senna/Docusate 8.6/50 mg (NF) TAB PO PRN (12:08)
[2022-03-22] MEDS ORDERED: Albuterol HFA INHALER 8 gm MDI INH PRN (12:08)
[2022-03-22] MEDS ORDERED: Dextrose 50% Syringe 50 ml 25 GM/50 ML SYRINGE IV PUSH PRN (12:13)
[2022-03-22] MEDS ORDERED: guaiFENesin 100 mg/5 ml LIQ unit dose cup PO PRN (12:25)
[2022-03-22] MEDS ORDERED: Sodium Phosphate ADULT ENEMA 133 ML BTL PR PRN (12:25)
[2022-03-22 13:33] LABS: TSH Ultra Thyroid Stim Horm 1.19 mcIU/mL (0.34-5.60)
[2022-03-22 13:35] LABS: Free T4 1.96 ng/dL (0.61-1.12)
[2022-03-22 13:43] LABS: C Reactive Protein 63.47 mg/L (<8.01)
[2022-03-22] MEDS ORDERED: Docusate LIQ 100 MG/10 ML UDC PO PRN (15:29)
[2022-03-22] MEDS ORDERED: Dextran 70/Hypromellose Tears Eye Drops 15 ml BTL (for Artificials Tears) BOTH EYES PRN (15:33)
[2022-03-22] MEDS: Enoxaparin 40 MG/0.4 ML SYR SUBCUT SCH (17:01)
[2022-03-22] MEDS: Pentoxifylline CR 400 mg TAB 400 MG PO SCH ×2 (17:02→20:37)
[2022-03-22] MEDS: Polyethylene Glycol 3350 17 GM PACKET PO SCH (17:02)
[2022-03-22] MEDS: cefTRIAXone 1 gm/50 mL D5W 1 GM/50 ML BAG IV SCH (17:54)
[2022-03-22] MEDS: Mometasone/Formoter 200/5 MDI INH SCH (19:54)
[2022-03-22] MEDS: Carbidopa/Levodop 25/100 MG TAB PO SCH (20:37)
[2022-03-22] MEDS: Morphine ER 15 mg TAB ** extended release PO SCH (20:37)
[2022-03-23] MEDS: Magnesium Hydroxide LIQ 30 ML UDC PO PRN (05:27)
[2022-03-23 06:28] LABS: ABS Eosinophils 0.1 10^3/ul (0-0.6); ABS Lymphocytes 0.7 10^3/ul (1.0-4.8); ABS Monocytes 0.6 10^3/ul (0-0.8); ABS Neutrophils 4.3 10^3/ul (1.5-7.7); Eosinophil % 1.2 %; Hematocrit 36 % (42-52); Hemoglobin 11.9 g/dL (14.0-18.0); Mean Corpuscular HGB Conc 34 g/dL (31-36); Mean Corpuscular Hemoglobin 28 pg (27-31); Mean Corpuscular Volume 83 fL (80-94); Mean Platelet Volume 7.2 fL (7.4-10.4); Platelet Count 245 10^3/uL (150-450); Red Blood Count 4.26 10^6 /uL (4.18-5.48); Red Cell Distribution Width 17 % (10-15); White Blood Count 5.7 10^3/uL (3.5-10.8)
[2022-03-23 06:44] LABS: Calcium 9.7 mg/dL (8.6-10.3); Creatinine, Serum 1.15 mg/dL (0.67-1.17); Potassium 4.2 mmol/L (3.5-5.0); eGFR CKD-EPI 64.3 (>60)
[2022-03-23] MEDS: Mometasone/Formoter 200/5 MDI INH SCH ×2 (07:12→19:08)
[2022-03-23] MEDS: Polyethylene Glycol 3350 17 GM PACKET PO SCH (08:17)
[2022-03-23] MEDS: Carbidopa/Levodop 25/100 MG TAB PO SCH ×2 (08:17→20:25)
[2022-03-23] MEDS: Senna TAB 8.6 mg TAB PO PRN (08:18)
[2022-03-23] MEDS: Pentoxifylline CR 400 mg TAB 400 MG PO SCH ×3 (08:18→20:25)
[2022-03-23] MEDS: Morphine ER 15 mg TAB ** extended release PO SCH ×2 (08:21→20:25)
[2022-03-23] MEDS: RIVASTIGMINE 9.5 MG TRANSDERM SCH (08:26)
[2022-03-23] MEDS ORDERED: SPIRIVA Respimat (tiotropium) 2.5 mcg/inh Inhaler INH SCH (09:00)
[2022-03-23] MEDS: Enoxaparin 40 MG/0.4 ML SYR SUBCUT SCH (12:59)
[2022-03-23] MEDS: cefTRIAXone 1 gm/50 mL D5W 1 GM/50 ML BAG IV SCH (15:01)
[2022-03-24] MEDS: Mometasone/Formoter 200/5 MDI INH SCH ×2 (07:45→18:44)
[2022-03-24] MEDS: Carbidopa/Levodop 25/100 MG TAB PO SCH ×2 (09:20→21:33)
[2022-03-24] MEDS: Pentoxifylline CR 400 mg TAB 400 MG PO SCH ×3 (09:21→21:34)
[2022-03-24] MEDS: Morphine ER 15 mg TAB ** extended release PO SCH ×2 (09:22→21:33)
[2022-03-24] MEDS: Polyethylene Glycol 3350 17 GM PACKET PO SCH (09:23)
[2022-03-24] MEDS: RIVASTIGMINE 9.5 MG TRANSDERM SCH (09:23)
[2022-03-24] MEDS: DOXYcycline 100 MG in NS 0.9% 250 ml 250 ML IVPB SCH ×2 (11:26→21:37)
[2022-03-24] MEDS: Enoxaparin 40 MG/0.4 ML SYR SUBCUT SCH (13:29)
[2022-03-24] MEDS: cefTRIAXone 1 gm/50 mL D5W 1 GM/50 ML BAG IV SCH (14:47)
[2022-03-25] MEDS ORDERED: Ondansetron 4 mg VIAL 2 MG/ML 2 ml VIAL IV ONE (00:12)
[2022-03-25 05:32] LABS: Hematocrit 33 % (42-52); Hemoglobin 10.7 g/dL (14.0-18.0); Mean Corpuscular HGB Conc 33 g/dL (31-36); Mean Corpuscular Hemoglobin 27 pg (27-31); Mean Corpuscular Volume 83 fL (80-94); Mean Platelet Volume 6.9 fL (7.4-10.4); Platelet Count 263 10^3/uL (150-450); Red Blood Count 3.92 10^6 /uL (4.18-5.48); Red Cell Distribution Width 17 % (10-15)
[2022-03-25 05:52] LABS: ABS Eosinophils 0.2 10^3/ul (0-0.6); ABS Lymphocytes 0.8 10^3/ul (1.0-4.8); ABS Monocytes 0.4 10^3/ul (0-0.8); ABS Neutrophils 3.6 10^3/ul (1.5-7.7); Eosinophil % 3.4 %; Lymphocyte % 15.7 %
[2022-03-25 06:06] LABS: Calcium 9.2 mg/dL (8.6-10.3); Creatinine, Serum 0.98 mg/dL (0.67-1.17); Potassium 4.3 mmol/L (3.5-5.0)
[2022-03-25] MEDS: Mometasone/Formoter 200/5 MDI INH SCH ×2 (07:35→19:26)
[2022-03-25] MEDS: Polyethylene Glycol 3350 17 GM PACKET PO SCH (09:17)
[2022-03-25] MEDS: Carbidopa/Levodop 25/100 MG TAB PO SCH ×2 (09:18→22:30)
[2022-03-25] MEDS: Pentoxifylline CR 400 mg TAB 400 MG PO SCH ×3 (09:18→22:28)
[2022-03-25] MEDS: Morphine ER 15 mg TAB ** extended release PO SCH ×2 (09:19→22:30)
[2022-03-25] MEDS: RIVASTIGMINE 9.5 MG TRANSDERM SCH (09:20)
[2022-03-25] MEDS: DOXYcycline 100 MG in NS 0.9% 250 ml 250 ML IVPB SCH ×2 (11:21→22:10)
[2022-03-25] MEDS: Enoxaparin 40 MG/0.4 ML SYR SUBCUT SCH (12:27)
[2022-03-25] MEDS: cefTRIAXone 1 gm/50 mL D5W 1 GM/50 ML BAG IV SCH (15:08)
[2022-03-25] MEDS: Senna TAB 8.6 mg TAB PO PRN (22:28)
[2022-03-26] MEDS: Albuterol HFA INHALER 8 gm MDI INH PRN ×2 (02:59→19:26)
[2022-03-26 05:55] LABS: Hematocrit 31 % (42-52); Hemoglobin 10.3 g/dL (14.0-18.0); Mean Corpuscular HGB Conc 33 g/dL (31-36); Mean Corpuscular Hemoglobin 27 pg (27-31); Mean Corpuscular Volume 82 fL (80-94); Mean Platelet Volume 6.6 fL (7.4-10.4); Platelet Count 259 10^3/uL (150-450); Red Cell Distribution Width 17 % (10-15); White Blood Count 4.6 10^3/uL (3.5-10.8)
[2022-03-26 06:42] LABS: Calcium 9.3 mg/dL (8.6-10.3); Creatinine, Serum 1.11 mg/dL (0.67-1.17); Magnesium 1.8 mg/dL (1.9-2.7); eGFR CKD-EPI 67.1 (>60)
[2022-03-26] MEDS: Mometasone/Formoter 200/5 MDI INH SCH ×2 (07:30→19:25)
[2022-03-26] MEDS: Polyethylene Glycol 3350 17 GM PACKET PO SCH (08:42)
[2022-03-26] MEDS: Morphine ER 15 mg TAB ** extended release PO SCH ×2 (08:45→20:25)
[2022-03-26] MEDS: Carbidopa/Levodop 25/100 MG TAB PO SCH ×2 (08:45→20:24)
[2022-03-26] MEDS: Pentoxifylline CR 400 mg TAB 400 MG PO SCH ×3 (08:46→20:25)
[2022-03-26] MEDS: RIVASTIGMINE 9.5 MG TRANSDERM SCH (08:50)
[2022-03-26] MEDS ORDERED: Magnesium Sulfate IV 1GM/100ML 1 GM/100 ML BAG IV ONE (09:03)
[2022-03-26] MEDS: DOXYcycline 100 MG in NS 0.9% 250 ml 250 ML IVPB SCH (11:36)
[2022-03-26] MEDS: Enoxaparin 40 MG/0.4 ML SYR SUBCUT SCH (12:07)
[2022-03-26] MEDS: cefTRIAXone 1 gm/50 mL D5W 1 GM/50 ML BAG IV SCH (14:05)
[2022-03-27] MEDS: DOXYcycline 100 MG in NS 0.9% 250 ml 250 ML IVPB SCH ×2 (00:07→11:36)
[2022-03-27] MEDS: Albuterol HFA INHALER 8 gm MDI INH PRN ×2 (07:35→19:22)
[2022-03-27] MEDS: Mometasone/Formoter 200/5 MDI INH SCH ×2 (07:35→19:22)
[2022-03-27] MEDS: Polyethylene Glycol 3350 17 GM PACKET PO SCH (08:39)
[2022-03-27] MEDS: Morphine ER 15 mg TAB ** extended release PO SCH ×2 (08:39→21:02)
[2022-03-27] MEDS: Carbidopa/Levodop 25/100 MG TAB PO SCH ×2 (09:40→21:02)
[2022-03-27] MEDS: Pentoxifylline CR 400 mg TAB 400 MG PO SCH ×3 (09:40→21:02)
[2022-03-27] MEDS: RIVASTIGMINE 9.5 MG TRANSDERM SCH (11:31)
[2022-03-27] MEDS: Senna TAB 8.6 mg TAB PO SCH ×2 (13:13→21:02)
[2022-03-27] MEDS: cefTRIAXone 1 gm/50 mL D5W 1 GM/50 ML BAG IV SCH (15:41)
[2022-03-27] MEDS: Magnesium Hydroxide LIQ 30 ML UDC PO PRN (23:01)
[2022-03-28 06:56] LABS: Calcium 9.4 mg/dL (8.6-10.3); Creatinine, Serum 0.94 mg/dL (0.67-1.17); Potassium 4.5 mmol/L (3.5-5.0); eGFR CKD-EPI 81.9 (>60)
[2022-03-28] MEDS: Mometasone/Formoter 200/5 MDI INH SCH (07:08)
[2022-03-28] MEDS: Albuterol HFA INHALER 8 gm MDI INH PRN (07:08)
[2022-03-28] MEDS: RIVASTIGMINE 9.5 MG TRANSDERM SCH (08:18)
[2022-03-28] MEDS: Carbidopa/Levodop 25/100 MG TAB PO SCH (08:18)
[2022-03-28] MEDS: Morphine ER 15 mg TAB ** extended release PO SCH (08:19)
[2022-03-28] MEDS: Pentoxifylline CR 400 mg TAB 400 MG PO SCH (08:20)
[2022-03-28] MEDS: Senna TAB 8.6 mg TAB PO SCH (08:20)
[2022-03-28] MEDS: Polyethylene Glycol 3350 17 GM PACKET PO SCH (08:25)
[2022-03-28] MEDS ORDERED: Sodium Phosphate ADULT ENEMA 133 ML BTL PR ONE (09:30)
[2022-03-28 09:31] LABS: Influenza A Molecular Negative (Negative); Influenza B Molecular Negative (Negative)
[2022-03-28] MEDS ORDERED: Enoxaparin 40 MG/0.4 ML SYR SUBCUT SCH (10:00)
[2022-03-28 10:53] VITALS: BP 128/71
[2022-03-28 12:34] LABS: Rapid COVID-19 Molecular Undetected (Undetected)
== END 2022-03-28 13:15 | DRG 193 ==
LOC: ED 08:15 → SUATTDRO 11:34 → EDHOLD 11:34 → MED 15:48
PROVIDERS: ADMIT Internal Medicine; ATTEND Internal Medicine

== ENCOUNTER 2022-07-18 16:00 | Inpatient (IN) ==
[2022-07-18] MEDS ORDERED: Lactated Ringers 1000 ml BAG 1,000 ML IV ONE ×2 (18:06→21:48)
[2022-07-18] MEDS ORDERED: cefTRIAXone 1 gm/50 mL D5W 1 GM/50 ML BAG IV ONE (18:06)
[2022-07-18 18:29] LABS: Hematocrit 33.7 % (38-53); Hemoglobin 11.1 g/dL (13.2-16.3); Mean Corpuscular Hemoglobin 28.4 pg (27-33); Mean Corpuscular Hgb Conc 32.9 g/dL (31-36); Mean Corpuscular Volume 86.3 fL (80-97); Mean Platelet Volume 6.9 fL (7.5-11.2); Platelet Count 294 10^3/uL (150-450); Red Cell Distribution Width 14.1 % (12-17); White Blood Count 12.8 10^3/uL (3.6-10.2)
[2022-07-18 18:37] LABS: Rapid Strep Molecular Positive (Negative)
[2022-07-18 18:38] LABS: Urine Appearance Cloudy; Urine Bilirubin Negative (Negative); Urine Blood Negative (Negative); Urine Color Yellow; Urine Glucose Negative (Negative); Urine Ketones Negative (Negative); Urine Nitrite Negative (Negative); Urine Protein 1+(30 mg/dL) (Negative); Urine Specific Gravity 1.013 (1.002-1.030); Urine Urobilinogen Negative (Negative)
[2022-07-18 18:45] LABS: Urine Bacteria Absent (Absent); Urine Red Blood Cell Trace(0-2/hpf) (Absent); Urine Squamous Epithelial Cell Present (Absent); Urine Transitional Epithelial Present (Absent); Urine White Blood Cell 3+(>20/hpf) (Absent)
[2022-07-18 18:54] LABS: ABS Basophils 0.1 10^3/uL (0.0-0.1); ABS Lymphocytes 0.3 10^3/uL (1.0-4.8); ABS Monocytes 0.6 10^3/uL (0.0-1.1); ABS Neutrophils 11.8 10^3/uL (1.5-7.6); Eosinophil % 0.1 %; Lymphocyte % 2.6 %
[2022-07-18 19:11] LABS: ALT 9 U/L (7-52); Albumin 3.1 g/dL (3.2-5.2); Alkaline Phosphatase 50 U/L (35-149); Blood Urea Nitrogen 29 mg/dL (6-24); C Reactive Protein 184.25 mg/L (<8.01); CO2 Carbon Dioxide 25 mmol/L (22-32); Calcium 9.2 mg/dL (8.6-10.3); Chloride 102 mmol/L (101-111); Creatinine, Serum 1.31 mg/dL (0.67-1.17); Glucose 200 mg/dL (70-100); Sodium 136 mmol/L (135-145); Total Protein 6.1 g/dL (6.4-8.9); eGFR CKD-EPI 54.7 (>60)
[2022-07-18 19:26] LABS: Anion Gap 9 mmol/L (2-16)
[2022-07-18] MEDS ORDERED: Al Hydrox/Mg Hydrox/Simet LIQ 30 ML UDC PO PRN (19:59)
[2022-07-18] MEDS ORDERED: Ondansetron 4 mg VIAL 2 MG/ML 2 ml VIAL IV PRN (19:59)
[2022-07-18] MEDS ORDERED: Azithromycin 500 mg/250 ml NS 500 MG/250 ML BAG IVPB SCH (20:00)
[2022-07-18] MEDS ORDERED: Glycerin ADULT 2.4 gm SUPP PR PRN (20:03)
[2022-07-18] MEDS ORDERED: Albuterol/Ipratropium NEB.SOL (2.5/0.5 MG) 3 ML NEB.SOLN ONE (20:23)
[2022-07-18] MEDS: Albuterol/Ipratropium NEB.SOL (2.5/0.5 MG) 3 ML NEB.SOLN INH SCH (20:25)
[2022-07-18] MEDS ORDERED: Morphine ER 15 mg TAB ** extended release PO SCH (21:00)
[2022-07-18 21:09] LABS: Potassium Redraw 4.4 mmol/L (3.5-5.0)
[2022-07-18] MEDS ORDERED: Vancomycin per Pharmacy 1 EA NOTE FOLLOW UP SCH (22:00)
[2022-07-18] MEDS ORDERED: Cefepime ADVAN 1 GM in NS 0.9% 50 ML 50 ML IVPB SCH (22:00)
[2022-07-18] MEDS ORDERED: Clindamycin 300 MG/D5W BAG 300 MG/50 ML BAG IV SCH (22:00)
[2022-07-18] MEDS: Carbidopa/Levodop 25/100 MG TAB PO SCH (22:01)
[2022-07-18] MEDS: Insulin GLARGINE 100 un/ml 10 ml VIAL SUBCUT SCH (22:02)
[2022-07-18] MEDS: Enoxaparin 40 MG/0.4 ML SYR SUBCUT SCH (22:02)
[2022-07-18] MEDS ORDERED: Vancomycin 1500 MG IV - x ONCE IVPB ONE (22:30)
[2022-07-18] MEDS: Cefepime 1 GM in Dextrose 1 GM/50 ML BAG IV SCH (22:51)
[2022-07-18] MEDS: Pentoxifylline CR 400 mg TAB 400 MG PO SCH (22:51)
[2022-07-18] MEDS: Mometasone/Formoter 200/5 MDI INH SCH (23:31)
[2022-07-19] MEDS: Clindamycin 300 MG/D5W BAG 300 MG/50 ML BAG IV SCH ×2 (01:33→05:46)
[2022-07-19 06:19] LABS: ABS Basophils 0.1 10^3/uL (0.0-0.1); ABS Lymphocytes 0.7 10^3/uL (1.0-4.8); ABS Monocytes 0.6 10^3/uL (0.0-1.1); ABS Neutrophils 12.1 10^3/uL (1.5-7.6); Hematocrit 29.2 % (38-53); Hemoglobin 9.7 g/dL (13.2-16.3); Lymphocyte % 5.2 %; Mean Corpuscular Hemoglobin 28.7 pg (27-33); Mean Corpuscular Hgb Conc 33.1 g/dL (31-36); Mean Corpuscular Volume 86.9 fL (80-97); Mean Platelet Volume 6.9 fL (7.5-11.2); Platelet Count 290 10^3/uL (150-450); Red Blood Count 3.36 10^6/uL (4.06-5.63); Red Cell Distribution Width 14.2 % (12-17); White Blood Count 13.5 10^3/uL (3.6-10.2)
[2022-07-19 06:50] LABS: Calcium 9.2 mg/dL (8.6-10.3); Creatinine, Serum 1.31 mg/dL (0.67-1.17); Magnesium 1.9 mg/dL (1.9-2.7); Potassium 3.9 mmol/L (3.5-5.0); eGFR CKD-EPI 54.7 (>60)
[2022-07-19] MEDS: Mometasone/Formoter 200/5 MDI INH SCH ×2 (08:10→20:44)
[2022-07-19] MEDS: Carbidopa/Levodop 25/100 MG TAB PO SCH ×2 (08:12→22:47)
[2022-07-19] MEDS: Polyethylene Glycol 3350 17 GM PACKET PO SCH (08:17)
[2022-07-19] MEDS: CMCS: LINACLOTIDE 72 MCG CAP (NF) PO SCH (08:40)
[2022-07-19] MEDS: Albuterol/Ipratropium NEB.SOL (2.5/0.5 MG) 3 ML NEB.SOLN INH SCH ×3 (08:47→20:43)
[2022-07-19] MEDS: Cefepime 1 GM in Dextrose 1 GM/50 ML BAG IV SCH (10:20)
[2022-07-19] MEDS: Pentoxifylline CR 400 mg TAB 400 MG PO SCH ×3 (11:46→22:47)
[2022-07-19] MEDS ORDERED: Sulfur Hexaflouride MICROSPHR 25 MG VIAL ONE (14:18)
[2022-07-19] MEDS ORDERED: cefTRIAXone 1 gm/50 mL D5W 1 GM/50 ML BAG IV SCH (18:00)
[2022-07-19] MEDS ORDERED: cefTRIAXone 2 gm/50 mL D5W 2 GM/50 ML BAG IV SCH (20:00)
[2022-07-19] MEDS ORDERED: Azithromycin 500 mg/250 ml NS 500 MG/250 ML BAG IVPB SCH (21:00)
[2022-07-19] MEDS ORDERED: Vancomycin 1,250 MG in NS 0.9% 250 ml 250 ML IVPB SCH (22:00)
[2022-07-19] MEDS: Insulin GLARGINE 100 un/ml 10 ml VIAL SUBCUT SCH (22:44)
[2022-07-19] MEDS: Enoxaparin 40 MG/0.4 ML SYR SUBCUT SCH (22:45)
[2022-07-19] MEDS: cefTRIAXone 2 gm/50 mL D5W 2 GM/50 ML BAG IV SCH (22:47)
[2022-07-20] MEDS: Albuterol/Ipratropium NEB.SOL (2.5/0.5 MG) 3 ML NEB.SOLN INH SCH ×5 (00:50→19:04)
[2022-07-20 05:24] LABS: ABS Eosinophils 0.2 10^3/uL (0.0-0.5); ABS Lymphocytes 0.7 10^3/uL (1.0-4.8); ABS Monocytes 0.5 10^3/uL (0.0-1.1); Eosinophil % 2.1 %; Hematocrit 28.4 % (38-53); Hemoglobin 9.7 g/dL (13.2-16.3); Lymphocyte % 6.8 %; Mean Corpuscular Hemoglobin 29.5 pg (27-33); Mean Corpuscular Hgb Conc 34.1 g/dL (31-36); Mean Corpuscular Volume 86.2 fL (80-97); Mean Platelet Volume 6.9 fL (7.5-11.2); Platelet Count 301 10^3/uL (150-450); Red Blood Count 3.29 10^6/uL (4.06-5.63); Red Cell Distribution Width 14.3 % (12-17); White Blood Count 10.4 10^3/uL (3.6-10.2)
[2022-07-20 06:19] LABS: Calcium 9.3 mg/dL (8.6-10.3); Creatinine, Serum 1.19 mg/dL (0.67-1.17); Magnesium 1.8 mg/dL (1.9-2.7); eGFR CKD-EPI 61.4 (>60)
[2022-07-20] MEDS: Mometasone/Formoter 200/5 MDI INH SCH ×2 (07:52→19:04)
[2022-07-20] MEDS: Polyethylene Glycol 3350 17 GM PACKET PO SCH (09:10)
[2022-07-20] MEDS: Carbidopa/Levodop 25/100 MG TAB PO SCH ×2 (09:11→22:13)
[2022-07-20] MEDS: Pentoxifylline CR 400 mg TAB 400 MG PO SCH ×3 (09:11→22:13)
[2022-07-20] MEDS: CMCS: LINACLOTIDE 72 MCG CAP (NF) PO SCH (09:12)
[2022-07-20] MEDS: Morphine ER 15 mg TAB ** extended release PO SCH ×2 (10:49→22:13)
[2022-07-20] MEDS ORDERED: Magnesium Sulfate IV 3 GM in NS 0.9% 100 ml BAG 100 ML IVPB ONE (16:51)
[2022-07-20] MEDS: Enoxaparin 40 MG/0.4 ML SYR SUBCUT SCH (22:00)
[2022-07-20] MEDS: Insulin GLARGINE 100 un/ml 10 ml VIAL SUBCUT SCH (22:00)
[2022-07-20] MEDS: cefTRIAXone 2 gm/50 mL D5W 2 GM/50 ML BAG IV SCH (22:13)
[2022-07-21] MEDS: Albuterol/Ipratropium NEB.SOL (2.5/0.5 MG) 3 ML NEB.SOLN INH SCH ×4 (00:06→19:09)
[2022-07-21] MEDS: Dextran 70/Hypromellose Tears Eye Drops 15 ml BTL (for Artificials Tears) BOTH EYES PRN (02:30)
[2022-07-21 07:13] LABS: ABS Eosinophils 0.3 10^3/uL (0.0-0.5); ABS Lymphocytes 0.9 10^3/uL (1.0-4.8); ABS Monocytes 0.4 10^3/uL (0.0-1.1); ABS Neutrophils 4.9 10^3/uL (1.5-7.6); Eosinophil % 4.4 %; Hemoglobin 9.5 g/dL (13.2-16.3); Lymphocyte % 13.9 %; Mean Corpuscular Hemoglobin 29.2 pg (27-33); Mean Corpuscular Hgb Conc 34.1 g/dL (31-36); Mean Corpuscular Volume 85.8 fL (80-97); Mean Platelet Volume 7.2 fL (7.5-11.2); Platelet Count 314 10^3/uL (150-450); Red Blood Count 3.26 10^6/uL (4.06-5.63); Red Cell Distribution Width 13.9 % (12-17); White Blood Count 6.5 10^3/uL (3.6-10.2)
[2022-07-21 07:39] LABS: Calcium 8.7 mg/dL (8.6-10.3); Creatinine, Serum 1.12 mg/dL (0.67-1.17); Magnesium 2.2 mg/dL (1.9-2.7); Potassium 4.2 mmol/L (3.5-5.0)
[2022-07-21] MEDS: Mometasone/Formoter 200/5 MDI INH SCH ×2 (08:37→19:09)
[2022-07-21] MEDS: Polyethylene Glycol 3350 17 GM PACKET PO SCH (09:21)
[2022-07-21] MEDS: Pentoxifylline CR 400 mg TAB 400 MG PO SCH ×3 (09:23→20:02)
[2022-07-21] MEDS: CMCS: LINACLOTIDE 72 MCG CAP (NF) PO SCH (09:23)
[2022-07-21] MEDS: Carbidopa/Levodop 25/100 MG TAB PO SCH ×2 (09:23→20:02)
[2022-07-21] MEDS: Morphine ER 15 mg TAB ** extended release PO SCH ×2 (11:11→22:25)
[2022-07-21] MEDS ORDERED: Dextrose 50% Syringe 50 ml 25 GM/50 ML SYRINGE IV PUSH PRN (14:57)
[2022-07-21] MEDS: Insulin GLARGINE 100 un/ml 10 ml VIAL SUBCUT SCH (20:12)
[2022-07-21] MEDS: Enoxaparin 40 MG/0.4 ML SYR SUBCUT SCH (20:12)
[2022-07-21] MEDS: cefTRIAXone 2 gm/50 mL D5W 2 GM/50 ML BAG IV SCH (20:21)
[2022-07-21] MEDS ORDERED: Vancomycin Trough Check NOTE FOLLOW UP ONE (21:30)
[2022-07-22] MEDS: Albuterol/Ipratropium NEB.SOL (2.5/0.5 MG) 3 ML NEB.SOLN INH SCH ×4 (00:44→19:20)
[2022-07-22] MEDS ORDERED: Benzocaine/Menthol LOZ PO PRN (02:39)
[2022-07-22] MEDS ORDERED: Benzocaine (plain) Lozenge 15 MG PO PRN (02:55)
[2022-07-22] MEDS: Benzocaine (plain) Lozenge 15 MG PO PRN ×2 (03:45→09:16)
[2022-07-22] MEDS: Mometasone/Formoter 200/5 MDI INH SCH ×2 (07:56→19:20)
[2022-07-22] MEDS: Polyethylene Glycol 3350 17 GM PACKET PO SCH (08:54)
[2022-07-22] MEDS: Carbidopa/Levodop 25/100 MG TAB PO SCH ×2 (08:55→21:41)
[2022-07-22] MEDS: Pentoxifylline CR 400 mg TAB 400 MG PO SCH ×3 (08:55→21:40)
[2022-07-22] MEDS: CMCS: LINACLOTIDE 72 MCG CAP (NF) PO SCH (09:01)
[2022-07-22] MEDS ORDERED: Iodixanol (CONTRAST) 320 MG/ML 100 ML SDV IV ONE (09:45)
[2022-07-22] MEDS: Morphine ER 15 mg TAB ** extended release PO SCH ×2 (12:17→21:59)
[2022-07-22] MEDS ORDERED: Flumazenil 0.5 mg/5 ml 0.1 MG/ML 5 ml VIAL ONE (15:06)
[2022-07-22] MEDS ORDERED: Midazolam 5 mg/5 ml VIAL 1 mg/ml 5 ml VIAL (5 mg) ONE (15:06)
[2022-07-22] MEDS ORDERED: Naloxone 0.4 mg VIAL 0.4 mg/ml 1 ml VIAL ONE (15:06)
[2022-07-22] MEDS ORDERED: fentaNYL 100 mcg/2 ml 50 MCG/ML VIAL ONE (15:06)
[2022-07-22] MEDS ORDERED: Midazolam 10 mg/10 ml VIAL 1 mg/ml 10 ml VIAL (10 mg) IV SLOW PU ONE (16:49)
[2022-07-22] MEDS ORDERED: fentaNYL 100 mcg/2 ml 50 MCG/ML VIAL IV SLOW PU ONE (16:49)
[2022-07-22] MEDS: cefTRIAXone 2 gm/50 mL D5W 2 GM/50 ML BAG IV SCH (21:40)
[2022-07-22] MEDS: Enoxaparin 40 MG/0.4 ML SYR SUBCUT SCH (21:59)
[2022-07-22] MEDS: Insulin GLARGINE 100 un/ml 10 ml VIAL SUBCUT SCH (21:59)
[2022-07-23] MEDS: Albuterol/Ipratropium NEB.SOL (2.5/0.5 MG) 3 ML NEB.SOLN INH SCH ×4 (01:32→19:05)
[2022-07-23 05:51] LABS: ABS Basophils 0.1 10^3/uL (0.0-0.1); ABS Eosinophils 0.3 10^3/uL (0.0-0.5); ABS Lymphocytes 1.1 10^3/uL (1.0-4.8); ABS Monocytes 0.5 10^3/uL (0.0-1.1); ABS Neutrophils 5.2 10^3/uL (1.5-7.6); Eosinophil % 4.7 %; Hematocrit 29.4 % (38-53); Hemoglobin 9.9 g/dL (13.2-16.3); Lymphocyte % 15.2 %; Mean Corpuscular Hemoglobin 29.1 pg (27-33); Mean Corpuscular Hgb Conc 33.7 g/dL (31-36); Mean Corpuscular Volume 86.3 fL (80-97); Platelet Count 342 10^3/uL (150-450); Red Cell Distribution Width 14.2 % (12-17); White Blood Count 7.2 10^3/uL (3.6-10.2)
[2022-07-23 06:14] LABS: Calcium 9.1 mg/dL (8.6-10.3); Creatinine, Serum 1.02 mg/dL (0.67-1.17); Magnesium 1.8 mg/dL (1.9-2.7); Potassium 4.5 mmol/L (3.5-5.0); eGFR CKD-EPI 73.8 (>60)
[2022-07-23] MEDS: Mometasone/Formoter 200/5 MDI INH SCH ×2 (08:06→19:05)
[2022-07-23] MEDS: Polyethylene Glycol 3350 17 GM PACKET PO SCH (09:30)
[2022-07-23] MEDS: Pentoxifylline CR 400 mg TAB 400 MG PO SCH ×3 (09:31→20:31)
[2022-07-23] MEDS: Carbidopa/Levodop 25/100 MG TAB PO SCH ×2 (09:31→20:32)
[2022-07-23] MEDS: CMCS: LINACLOTIDE 72 MCG CAP (NF) PO SCH (09:32)
[2022-07-23] MEDS: Morphine ER 15 mg TAB ** extended release PO SCH ×2 (10:52→23:06)
[2022-07-23] MEDS ORDERED: Lubriderm LOTION 180 ML BTL TOPICAL PRN (16:58)
[2022-07-23] MEDS: Enoxaparin 40 MG/0.4 ML SYR SUBCUT SCH (20:41)
[2022-07-23] MEDS: Insulin GLARGINE 100 un/ml 10 ml VIAL SUBCUT SCH (20:41)
[2022-07-24] MEDS: Albuterol/Ipratropium NEB.SOL (2.5/0.5 MG) 3 ML NEB.SOLN INH SCH ×5 (01:44→19:05)
[2022-07-24] MEDS: Benzocaine (plain) Lozenge 15 MG PO PRN ×2 (05:51→13:58)
[2022-07-24] MEDS: Mometasone/Formoter 200/5 MDI INH SCH ×2 (07:18→19:05)
[2022-07-24] MEDS: Carbidopa/Levodop 25/100 MG TAB PO SCH ×2 (09:49→20:32)
[2022-07-24] MEDS: Pentoxifylline CR 400 mg TAB 400 MG PO SCH ×3 (09:50→20:33)
[2022-07-24] MEDS: CMCS: LINACLOTIDE 72 MCG CAP (NF) PO SCH (09:51)
[2022-07-24] MEDS: Polyethylene Glycol 3350 17 GM PACKET PO SCH (09:52)
[2022-07-24] MEDS: Morphine ER 15 mg TAB ** extended release PO SCH ×2 (11:08→22:56)
[2022-07-24] MEDS: Insulin GLARGINE 100 un/ml 10 ml VIAL SUBCUT SCH (20:34)
[2022-07-24] MEDS: Enoxaparin 40 MG/0.4 ML SYR SUBCUT SCH (20:34)
[2022-07-25] MEDS: Dextran 70/Hypromellose Tears Eye Drops 15 ml BTL (for Artificials Tears) BOTH EYES PRN (01:03)
[2022-07-25] MEDS: Albuterol/Ipratropium NEB.SOL (2.5/0.5 MG) 3 ML NEB.SOLN INH SCH ×4 (01:15→19:19)
[2022-07-25] MEDS: Mometasone/Formoter 200/5 MDI INH SCH ×2 (07:29→19:19)
[2022-07-25] MEDS: Morphine ER 15 mg TAB ** extended release PO SCH ×2 (10:15→22:14)
[2022-07-25] MEDS: Pentoxifylline CR 400 mg TAB 400 MG PO SCH ×3 (10:15→20:05)
[2022-07-25] MEDS: Carbidopa/Levodop 25/100 MG TAB PO SCH ×2 (10:15→20:07)
[2022-07-25] MEDS: CMCS: LINACLOTIDE 72 MCG CAP (NF) PO SCH (10:15)
[2022-07-25] MEDS: Polyethylene Glycol 3350 17 GM PACKET PO SCH (10:16)
[2022-07-25] MEDS: Enoxaparin 40 MG/0.4 ML SYR SUBCUT SCH (20:07)
[2022-07-25] MEDS: Insulin GLARGINE 100 un/ml 10 ml VIAL SUBCUT SCH (22:14)
[2022-07-26] MEDS: Albuterol/Ipratropium NEB.SOL (2.5/0.5 MG) 3 ML NEB.SOLN INH SCH ×4 (01:23→19:04)
[2022-07-26] MEDS: Mometasone/Formoter 200/5 MDI INH SCH ×2 (07:05→19:04)
[2022-07-26] MEDS: Carbidopa/Levodop 25/100 MG TAB PO SCH ×2 (09:06→20:33)
[2022-07-26] MEDS: Pentoxifylline CR 400 mg TAB 400 MG PO SCH ×3 (09:06→20:33)
[2022-07-26] MEDS: Polyethylene Glycol 3350 17 GM PACKET PO SCH (09:08)
[2022-07-26] MEDS: CMCS: LINACLOTIDE 72 MCG CAP (NF) PO SCH (09:09)
[2022-07-26] MEDS: Dextran 70/Hypromellose Tears Eye Drops 15 ml BTL (for Artificials Tears) BOTH EYES PRN (09:10)
[2022-07-26] MEDS: Morphine ER 15 mg TAB ** extended release PO SCH ×2 (12:58→21:59)
[2022-07-26] MEDS: Insulin GLARGINE 100 un/ml 10 ml VIAL SUBCUT SCH (20:34)
[2022-07-26] MEDS: Enoxaparin 40 MG/0.4 ML SYR SUBCUT SCH (20:34)
[2022-07-27] MEDS: Albuterol/Ipratropium NEB.SOL (2.5/0.5 MG) 3 ML NEB.SOLN INH SCH ×4 (01:23→19:51)
[2022-07-27] MEDS: Mometasone/Formoter 200/5 MDI INH SCH ×2 (07:09→19:51)
[2022-07-27] MEDS: CMCS: LINACLOTIDE 72 MCG CAP (NF) PO SCH (09:22)
[2022-07-27] MEDS: Pentoxifylline CR 400 mg TAB 400 MG PO SCH ×3 (09:24→21:08)
[2022-07-27] MEDS: Carbidopa/Levodop 25/100 MG TAB PO SCH ×2 (09:24→21:03)
[2022-07-27] MEDS: Polyethylene Glycol 3350 17 GM PACKET PO SCH (09:25)
[2022-07-27] MEDS: Morphine ER 15 mg TAB ** extended release PO SCH ×2 (12:44→22:17)
[2022-07-27] MEDS ORDERED: Dextrose 50% Syringe 50 ml 25 GM/50 ML SYRINGE IV PUSH PRN (16:10)
[2022-07-27] MEDS: Enoxaparin 40 MG/0.4 ML SYR SUBCUT SCH (21:03)
[2022-07-27] MEDS: Insulin GLARGINE 100 un/ml 10 ml VIAL SUBCUT SCH (21:04)
[2022-07-27] MEDS: Dextran 70/Hypromellose Tears Eye Drops 15 ml BTL (for Artificials Tears) BOTH EYES PRN (23:29)
[2022-07-28] MEDS ORDERED: Albuterol/Ipratropium NEB.SOL (2.5/0.5 MG) 3 ML NEB.SOLN INH SCH
[2022-07-28] MEDS: Albuterol/Ipratropium NEB.SOL (2.5/0.5 MG) 3 ML NEB.SOLN INH SCH ×3 (06:54→19:26)
[2022-07-28] MEDS: Mometasone/Formoter 200/5 MDI INH SCH ×2 (06:54→19:26)
[2022-07-28] MEDS: CMCS: LINACLOTIDE 72 MCG CAP (NF) PO SCH (09:13)
[2022-07-28] MEDS: Pentoxifylline CR 400 mg TAB 400 MG PO SCH ×3 (09:16→21:33)
[2022-07-28] MEDS: Carbidopa/Levodop 25/100 MG TAB PO SCH ×2 (09:16→21:33)
[2022-07-28] MEDS: Polyethylene Glycol 3350 17 GM PACKET PO SCH (09:17)
[2022-07-28] MEDS: Morphine ER 15 mg TAB ** extended release PO SCH ×2 (11:07→22:35)
[2022-07-28] MEDS: Enoxaparin 40 MG/0.4 ML SYR SUBCUT SCH (21:33)
[2022-07-28] MEDS: Insulin GLARGINE 100 un/ml 10 ml VIAL SUBCUT SCH (21:34)
[2022-07-29] MEDS: Albuterol/Ipratropium NEB.SOL (2.5/0.5 MG) 3 ML NEB.SOLN INH SCH ×2 (07:42→13:29)
[2022-07-29] MEDS: Mometasone/Formoter 200/5 MDI INH SCH (07:43)
[2022-07-29] MEDS: Pentoxifylline CR 400 mg TAB 400 MG PO SCH ×2 (08:31→13:07)
[2022-07-29] MEDS: Carbidopa/Levodop 25/100 MG TAB PO SCH (08:31)
[2022-07-29] MEDS: Polyethylene Glycol 3350 17 GM PACKET PO SCH (08:32)
[2022-07-29] MEDS: CMCS: LINACLOTIDE 72 MCG CAP (NF) PO SCH (08:40)
[2022-07-29 11:27] VITALS: BP 121/64
[2022-07-29] MEDS: Morphine ER 15 mg TAB ** extended release PO SCH (12:12)
== END 2022-07-29 13:35 | DRG 872 ==
LOC: ED 16:00 → EDHOLD 16:00 → SUATTDRO 19:59 → MED 07-19 20:14
PROVIDERS: ADMIT Hospitalist; ATTEND Internal Medicine

== ENCOUNTER 2023-06-19 11:53 | Inpatient (IN) ==
[2023-06-19 13:00] LABS: ABS Basophils 0.1 10^3/uL (0.0-0.1); ABS Eosinophils 0.2 10^3/uL (0.0-0.5); ABS Lymphocytes 0.7 10^3/uL (1.0-4.8); ABS Monocytes 0.4 10^3/uL (0.0-1.1); ABS Neutrophils 2.8 10^3/uL (1.5-7.6); Eosinophil % 5.7 %; Hematocrit 32.6 % (38-53); Hemoglobin 10.8 g/dL (13.2-16.3); Lymphocyte % 16.2 %; Mean Corpuscular Hemoglobin 28.4 pg (27-33); Mean Corpuscular Hgb Conc 33.3 g/dL (31-36); Mean Corpuscular Volume 85.2 fL (80-97); Mean Platelet Volume 6.3 fL (7.5-11.2); Nucleated Red Blood Cells % 0.1 %/100WBC (0.0-0.8); Platelet Count 331 10^3/uL (150-450); Red Blood Count 3.82 10^6/uL (4.06-5.63); Red Cell Distribution Width 14.7 % (12-17); White Blood Count 4.2 10^3/uL (3.6-10.2)
[2023-06-19 13:12] LABS: Activated Partial Thrombo Time 40.2 seconds (26.0-38.0); INR 1.25 (0.83-1.13)
[2023-06-19 13:21] LABS: High Sens Troponin Baseline 5 pg/mL (<20)
[2023-06-19 13:38] LABS: Anion Gap 5 mmol/L (2-16); Blood Urea Nitrogen 28 mg/dL (6-24); C Reactive Protein 71.71 mg/L (<8.01); CO2 Carbon Dioxide 29 mmol/L (22-32); Chloride 100 mmol/L (101-111); Creatinine, Serum 1.91 mg/dL (0.67-1.17); Glucose 122 mg/dL (70-100); Potassium 4.7 mmol/L (3.5-5.0); Sodium 134 mmol/L (135-145); eGFR CKD-EPI 34.8 (>60)
[2023-06-19 13:47] LABS: AST 9 U/L (13-39); Albumin 3.1 g/dL (3.2-5.2); Albumin/Globulin Ratio 1.1 (1-3); Alkaline Phosphatase 43 U/L (35-149); Globulin 2.8 g/dL (2-4); Total Bilirubin 0.6 mg/dL (0.2-1.0); Total Protein 5.9 g/dL (6.4-8.9)
[2023-06-19 14:05] LABS: ALT < 3 U/L (7-52)
[2023-06-19 14:21] LABS: High Sensitivity Troponin 1 Hr 5 pg/mL (<20)
[2023-06-19] MEDS: Lactated Ringers 1000 ml BAG 1,000 ML IV ONE ×2 (15:07→17:04)
[2023-06-19 17:07] LABS: Urine Appearance Extra Turbid; Urine Bilirubin Negative (Negative); Urine Blood 2+ (Negative); Urine Glucose Negative (Negative); Urine Ketones Negative (Negative); Urine Nitrite Negative (Negative); Urine Protein 2+ (>=100 mg/dL) (Negative); Urine Specific Gravity 1.011 (1.002-1.030); Urine Urobilinogen Negative (Negative)
[2023-06-19 17:24] LABS: Urine Bacteria 3+ /HPF (Absent); Urine Red Blood Cell 3+(>10/hpf) /HPF (0-Trace); Urine White Blood Cell 3+(>20/hpf) /HPF (0-Trace)
[2023-06-19 17:29] LABS: Urine Color Yellow
[2023-06-19] MEDS: Piperacillin/Tazobac 3.375 BAG 3.375 GM/100 ML BAG IV ONE (22:09)
[2023-06-19] MEDS: Vancomycin 1,000 MG in NS 0.9% 250 ml 250 ML IVPB ONE (22:57)
[2023-06-20] MEDS ORDERED: Naloxone Nasal Spray 4 MG/0.1 ML NASAL.SPR INTRANASAL PRN (00:53)
[2023-06-20] MEDS ORDERED: Vancomycin per Pharmacy 1 EA NOTE FOLLOW UP SCH (01:00)
[2023-06-20] MEDS ORDERED: Zosyn per Pharmacy NOTE FOLLOW UP SCH (01:00)
[2023-06-20] MEDS: Morphine ER 15 mg TAB ** extended release PO SCH ×2 (02:13→08:55)
[2023-06-20] MEDS: Enoxaparin 30 MG/0.3 ML SYR SUBCUT SCH (04:35)
[2023-06-20] MEDS ORDERED: Carboxymethylcellulos 1% OPTH 1 AMP BOTH EYES PRN (06:29)
[2023-06-20] MEDS: ZOSYN 3.375 GM x ONE DOSE over 30 miuntes IV (06:37)
[2023-06-20] MEDS: CMCS: Lubiprostone 24 MCG CAP (NF) PO SCH (08:54)
[2023-06-20] MEDS: Carbidopa/Levodop 25/100 MG TAB PO SCH (08:56)
[2023-06-20] MEDS: Magnesium Hydroxide LIQ 30 ML UDC PO SCH (08:56)
[2023-06-20] MEDS: Polyethylene Glycol 3350 17 GM PACKET PO SCH (08:56)
[2023-06-20] MEDS ORDERED: ZOSYN 3.375 GM Q8H per EXTENDED INFUSION IV SCH (12:00)
[2023-06-20] MEDS: NS 0.9% 1000 ml BAG 1,000 ML IV SCH (12:34)
[2023-06-20] MEDS: Vancomycin 750 MG in NS 0.9% 250 ML IVPB SCH (12:34)
[2023-06-20 14:15] LABS: Hematocrit 31.2 % (38-53); Hemoglobin 10.4 g/dL (13.2-16.3); Mean Corpuscular Hemoglobin 28.4 pg (27-33); Mean Corpuscular Hgb Conc 33.4 g/dL (31-36); Mean Corpuscular Volume 84.8 fL (80-97); Mean Platelet Volume 6.3 fL (7.5-11.2); Platelet Count 304 10^3/uL (150-450); Red Blood Count 3.68 10^6/uL (4.06-5.63); Red Cell Distribution Width 14.4 % (12-17); White Blood Count 3.9 10^3/uL (3.6-10.2)
[2023-06-20 14:44] LABS: Calcium 8.9 mg/dL (8.6-10.3); Creatinine, Serum 1.39 mg/dL (0.67-1.17); Magnesium 1.8 mg/dL (1.9-2.7); Potassium 4.1 mmol/L (3.5-5.0); eGFR CKD-EPI 50.9 (>60)
[2023-06-20] MEDS ORDERED: Dextrose 50% Syringe 50 ml 25 GM/50 ML SYRINGE IV PUSH PRN (15:01)
[2023-06-20 15:19] LABS: TSH Ultra Thyroid Stim Horm 0.19 mcIU/mL (0.34-5.60)
[2023-06-20] MEDS: ZOSYN 3.375 GM Q8H per EXTENDED INFUSION IV SCH (15:27)
[2023-06-20] MEDS: Magnesium Sulf 4 GM/100 ML IV 4,000 MG/100 ML BAG IVPB ONE (19:44)
[2023-06-20] MEDS: Mometasone 220 MCG MDI INH SCH (19:51)
[2023-06-20] MEDS: Insulin GLARGINE 100 un/ml 10 ml VIAL SUBCUT SCH (21:08)
[2023-06-20] MEDS: Senna TAB 8.6 mg TAB PO SCH (21:10)
[2023-06-21 05:27] LABS: Hematocrit 26.7 % (38-53); Hemoglobin 8.9 g/dL (13.2-16.3); Mean Corpuscular Hemoglobin 28.3 pg (27-33); Mean Corpuscular Hgb Conc 33.4 g/dL (31-36); Mean Corpuscular Volume 84.7 fL (80-97); Mean Platelet Volume 6.5 fL (7.5-11.2); Platelet Count 275 10^3/uL (150-450); Red Blood Count 3.15 10^6/uL (4.06-5.63); Red Cell Distribution Width 14.4 % (12-17); White Blood Count 3.9 10^3/uL (3.6-10.2)
[2023-06-21 05:50] LABS: Calcium 8.1 mg/dL (8.6-10.3); Creatinine, Serum 1.15 mg/dL (0.67-1.17); Magnesium 2.6 mg/dL (1.9-2.7); eGFR CKD-EPI 63.9 (>60)
[2023-06-21 08:41] LABS: Free T4 1.96 ng/dL (0.61-1.12)
[2023-06-21] MEDS: Morphine ER 15 mg TAB ** extended release PO SCH (12:55)
[2023-06-21 16:59] LABS: Ferritin 65.1 ng/mL (24-336)
[2023-06-21 17:03] LABS: Folate 7.38 ng/mL (5.90-24.80)
[2023-06-21] MEDS: Albuterol HFA INHALER 8 gm MDI INH PRN (19:23)
[2023-06-22 06:30] LABS: ABS Basophils 0.1 10^3/uL (0.0-0.1); ABS Eosinophils 0.4 10^3/uL (0.0-0.5); ABS Lymphocytes 1.1 10^3/uL (1.0-4.8); ABS Monocytes 0.5 10^3/uL (0.0-1.1); ABS Neutrophils 2.6 10^3/uL (1.5-7.6); Eosinophil % 9.3 %; Hematocrit 29.4 % (38-53); Hemoglobin 9.7 g/dL (13.2-16.3); Lymphocyte % 23.4 %; Mean Corpuscular Hemoglobin 27.9 pg (27-33); Mean Corpuscular Volume 84.8 fL (80-97); Mean Platelet Volume 6.5 fL (7.5-11.2); Platelet Count 281 10^3/uL (150-450); Red Blood Count 3.47 10^6/uL (4.06-5.63); Red Cell Distribution Width 14.8 % (12-17); White Blood Count 4.7 10^3/uL (3.6-10.2)
[2023-06-22 06:48] LABS: Calcium 8.2 mg/dL (8.6-10.3); Creatinine, Serum 1.13 mg/dL (0.67-1.17); Magnesium 2.1 mg/dL (1.9-2.7); Potassium 4.1 mmol/L (3.5-5.0); eGFR CKD-EPI 65.3 (>60)
[2023-06-22] MEDS ORDERED: Vancomycin Trough Check NOTE FOLLOW UP ONE (11:30)
[2023-06-23 08:53] LABS: Anaplasma phagocytophilum Negative (Negative); B. miyamotoi PCR, B Negative (Negative); Babesia divergens/MO-1 Negative (Negative); Babesia ducani Negative (Negative); Ehrlichia chaffeensis Negative (Negative); Ehrlichia ewingii/canis Negative (Negative); Ehrlichia muris eauclairensis Negative (Negative)
[2023-06-23 10:06] VITALS: BP 124/54
== END 2023-06-23 10:50 | DRG 71 ==
LOC: EDHOLD 11:53 → ED 11:53 → SUATTDRO 23:41 → MED 06-20 10:31
PROVIDERS: ADMIT Internal Medicine; ATTEND Internal Medicine

== ENCOUNTER 2023-06-25 12:31 | Inpatient (IN) ==
[2023-06-25 13:54] LABS: ABS Basophils 0.1 10^3/uL (0.0-0.1); ABS Eosinophils 0.2 10^3/uL (0.0-0.5); ABS Lymphocytes 0.5 10^3/uL (1.0-4.8); ABS Monocytes 0.4 10^3/uL (0.0-1.1); ABS Neutrophils 11.5 10^3/uL (1.5-7.6); ABS Nucleated RBC 0.01 10^3/ul; Eosinophil % 1.9 %; Lymphocyte % 4.3 %; Mean Corpuscular Hemoglobin 27.8 pg (27-33); Mean Corpuscular Hgb Conc 32.5 g/dL (31-36); Mean Corpuscular Volume 85.4 fL (80-97); Mean Platelet Volume 6.2 fL (7.5-11.2); Platelet Count 333 10^3/uL (150-450); Red Blood Count 3.98 10^6/uL (4.06-5.63); Red Cell Distribution Width 14.7 % (12-17); White Blood Count 12.8 10^3/uL (3.6-10.2)
[2023-06-25] MEDS: NS 0.9% 500 ml BAG 500 ML IV ONE ×2 (14:17→17:27)
[2023-06-25 14:19] LABS: High Sens Troponin Baseline 4 pg/mL (<20)
[2023-06-25 14:56] LABS: Anion Gap 5 mmol/L (2-16); Blood Urea Nitrogen 14 mg/dL (6-24); CO2 Carbon Dioxide 26 mmol/L (22-32); Calcium 8.7 mg/dL (8.6-10.3); Chloride 104 mmol/L (101-111); Creatinine, Serum 0.95 mg/dL (0.67-1.17); Glucose 80 mg/dL (70-100); Potassium 4.2 mmol/L (3.5-5.0); Sodium 135 mmol/L (135-145); eGFR CKD-EPI 80.4 (>60)
[2023-06-25 15:19] LABS: ALT < 3 U/L (7-52); AST 9 U/L (13-39); Albumin 3.1 g/dL (3.2-5.2); Albumin/Globulin Ratio 1.2 (1-3); Alkaline Phosphatase 37 U/L (35-149); Globulin 2.5 g/dL (2-4); Lipase 670 U/L (11.0-82.0); Magnesium 1.7 mg/dL (1.9-2.7); Total Bilirubin 0.5 mg/dL (0.2-1.0); Total Protein 5.6 g/dL (6.4-8.9)
[2023-06-25 15:25] LABS: High Sensitivity Troponin 1 Hr 5 pg/mL (<20)
[2023-06-25] MEDS: Iodixanol (CONTRAST) 320 MG/ML 100 ML SDV IV ONE (16:20)
[2023-06-25 18:08] LABS: Urine Appearance Clear; Urine Bilirubin Negative (Negative); Urine Blood Negative (Negative); Urine Color Yellow; Urine Glucose Negative (Negative); Urine Ketones Negative (Negative); Urine Nitrite Negative (Negative); Urine Protein Trace (Negative); Urine Urobilinogen 1+ (Negative); Urine pH 6.5 (5.0-8.0)
[2023-06-25 18:14] LABS: Urine Bacteria Absent /HPF (Absent); Urine Red Blood Cell 2+(6-10/hpf) /HPF (0-Trace); Urine White Blood Cell 2+(11-20/hpf) /HPF (0-Trace)
[2023-06-25] MEDS: Lactated Ringers 1000 ml BAG 1,000 ML IV SCH ×2 (18:30→20:30)
[2023-06-25] MEDS ORDERED: Naloxone Nasal Spray 4 MG/0.1 ML NASAL.SPR INTRANASAL PRN (19:46)
[2023-06-25] MEDS ORDERED: Dextran 70/Hypromellose Tears Eye Drops 15 ml BTL (for Artificials Tears) BOTH EYES PRN (20:19)
[2023-06-25] MEDS: Magnesium Sulfate 2 gm BAG 2 GM/50 ML BAG IVPB ONE (20:19)
[2023-06-25 20:25] LABS: Cholesterol 130 mg/dL; HDL Cholesterol 31.3 mg/dL; LDL Cholesterol 66 mg/dL; Triglycerides 166 mg/dL
[2023-06-25] MEDS: Mometasone 220 MCG MDI INH SCH (21:30)
[2023-06-25] MEDS: Carbidopa/Levodop 25/100 MG TAB PO SCH (21:34)
[2023-06-25] MEDS: Senna TAB 8.6 mg TAB PO SCH (21:34)
[2023-06-25] MEDS: Morphine ER 15 mg TAB ** extended release PO SCH (21:35)
[2023-06-25] MEDS: CMCS: Lubiprostone 24 MCG CAP (NF) PO SCH (21:35)
[2023-06-25] MEDS: Enoxaparin 40 MG/0.4 ML SYR SUBCUT SCH (21:35)
[2023-06-25] MEDS ORDERED: Dextrose 50% Syringe 50 ml 25 GM/50 ML SYRINGE IV PUSH PRN (21:35)
[2023-06-25] MEDS: Magnesium Sulfate IV 1GM/100ML 1 GM/100 ML BAG IV ONE (21:45)
[2023-06-26] MEDS: NS 0.9% 1000 ml BAG 1,000 ML IV SCH (00:06)
[2023-06-26] MEDS: Lactated Ringers 1000 ml BAG 1,000 ML IV SCH (08:07)
[2023-06-26] MEDS: RIVASTIGMINE 9.5 MG TRANSDERM SCH (10:11)
[2023-06-26] MEDS: Polyethylene Glycol 3350 17 GM PACKET PO SCH (10:14)
[2023-06-26] MEDS: Ondansetron 4 mg VIAL 2 MG/ML 2 ml VIAL IV PRN (12:44)
[2023-06-26] MEDS: Morphine 2 MG/ML SYRINGE IV ONE (16:47)
[2023-06-26] MEDS: Albuterol HFA INHALER 8 gm MDI INH PRN (20:10)
[2023-06-27 06:48] LABS: ABS Eosinophils 0.3 10^3/uL (0.0-0.5); ABS Lymphocytes 0.5 10^3/uL (1.0-4.8); ABS Monocytes 0.5 10^3/uL (0.0-1.1); ABS Neutrophils 10.8 10^3/uL (1.5-7.6); Eosinophil % 2.1 %; Hemoglobin 8.1 g/dL (13.2-16.3); Mean Corpuscular Hemoglobin 27.4 pg (27-33); Mean Corpuscular Hgb Conc 32.4 g/dL (31-36); Mean Corpuscular Volume 84.6 fL (80-97); Mean Platelet Volume 6.7 fL (7.5-11.2); Platelet Count 243 10^3/uL (150-450); Red Blood Count 2.96 10^6/uL (4.06-5.63); White Blood Count 12.1 10^3/uL (3.6-10.2)
[2023-06-27 07:00] LABS: Calcium 7.6 mg/dL (8.6-10.3); Creatinine, Serum 0.95 mg/dL (0.67-1.17); Magnesium 1.7 mg/dL (1.9-2.7); Potassium 3.8 mmol/L (3.5-5.0); eGFR CKD-EPI 80.4 (>60)
[2023-06-27] MEDS ORDERED: NS 0.9% 1000 ml BAG 1,000 ML IV SCH (07:00)
[2023-06-27] MEDS: NS 0.9% 500 ml BAG 500 ML IV SCH (07:08)
[2023-06-27] MEDS: Magnesium Sulfate 2 gm BAG 2 GM/50 ML BAG IVPB ONE (08:48)
[2023-06-27] MEDS: Ferric Gluconate IV 250 MG in NS 0.9% 250 ml 200 ML IVPB SCH (10:42)
[2023-06-27] MEDS: Magnesium Hydroxide LIQ 30 ML UDC PO PRN (14:57)
[2023-06-27] MEDS ORDERED: Zosyn per Pharmacy NOTE FOLLOW UP SCH (16:00)
[2023-06-27] MEDS: ZOSYN 3.375 GM x ONE DOSE over 30 miuntes IV (16:34)
[2023-06-27] MEDS ORDERED: Dextrose 50% Syringe 50 ml 25 GM/50 ML SYRINGE IV PUSH PRN (16:52)
[2023-06-27] MEDS: Insulin GLARGINE 100 un/ml 10 ml VIAL SUBCUT SCH (20:11)
[2023-06-27] MEDS: ZOSYN 3.375 GM Q8H per EXTENDED INFUSION IV SCH (20:12)
[2023-06-28 06:56] LABS: Hematocrit 27.7 % (38-53); Hemoglobin 9.1 g/dL (13.2-16.3); Mean Corpuscular Hemoglobin 28.1 pg (27-33); Mean Corpuscular Hgb Conc 32.9 g/dL (31-36); Mean Corpuscular Volume 85.5 fL (80-97); Mean Platelet Volume 6.9 fL (7.5-11.2); Platelet Count 235 10^3/uL (150-450); Red Blood Count 3.24 10^6/uL (4.06-5.63); Red Cell Distribution Width 15.2 % (12-17); White Blood Count 8.6 10^3/uL (3.6-10.2)
[2023-06-28 07:14] LABS: Calcium 7.9 mg/dL (8.6-10.3); Creatinine, Serum 0.97 mg/dL (0.67-1.17); Magnesium 1.9 mg/dL (1.9-2.7); Potassium 4.3 mmol/L (3.5-5.0); eGFR CKD-EPI 78.4 (>60)
[2023-06-28] MEDS: Sodium Chloride(INHALANT) 3% 4 ML NEB.SOLN INH ONE (07:57)
[2023-06-28] MEDS: Albuterol/Ipratropium NEB.SOL (2.5/0.5 MG) 3 ML NEB.SOLN INH SCH ×2 (10:46→15:48)
[2023-06-29 06:58] LABS: ABS Eosinophils 0.1 10^3/uL (0.0-0.5); ABS Lymphocytes 0.5 10^3/uL (1.0-4.8); ABS Monocytes 0.3 10^3/uL (0.0-1.1); ABS Neutrophils 4.7 10^3/uL (1.5-7.6); Eosinophil % 2.1 %; Hematocrit 24.1 % (38-53); Lymphocyte % 9.5 %; Mean Corpuscular Hemoglobin 28.2 pg (27-33); Mean Corpuscular Hgb Conc 33.2 g/dL (31-36); Mean Corpuscular Volume 85.2 fL (80-97); Mean Platelet Volume 6.9 fL (7.5-11.2); Nucleated Red Blood Cells % 0.1 %/100WBC (0.0-0.8); Platelet Count 241 10^3/uL (150-450); Red Blood Count 2.83 10^6/uL (4.06-5.63); White Blood Count 5.7 10^3/uL (3.6-10.2)
[2023-06-29 07:14] LABS: Anion Gap 3 mmol/L (2-16); Blood Urea Nitrogen 12 mg/dL (6-24); CO2 Carbon Dioxide 26 mmol/L (22-32); Calcium 7.9 mg/dL (8.6-10.3); Chloride 108 mmol/L (101-111); Creatinine, Serum 0.97 mg/dL (0.67-1.17); Glucose 71 mg/dL (70-100); Potassium 4.2 mmol/L (3.5-5.0); Sodium 137 mmol/L (135-145); eGFR CKD-EPI 78.4 (>60)
[2023-06-29 07:27] LABS: ALT < 3 U/L (7-52); AST 11 U/L (13-39); Albumin 2.3 g/dL (3.2-5.2); Albumin/Globulin Ratio 1.1 (1-3); Alkaline Phosphatase 34 U/L (35-149); Globulin 2.1 g/dL (2-4); Magnesium 1.8 mg/dL (1.9-2.7); Total Bilirubin 0.3 mg/dL (0.2-1.0); Total Protein 4.4 g/dL (6.4-8.9)
[2023-06-29] MEDS: Magnesium Sulfate 2 gm BAG 2 GM/50 ML BAG IVPB ONE (11:34)
[2023-06-30 06:30] LABS: ABS Eosinophils 0.2 10^3/uL (0.0-0.5); ABS Lymphocytes 0.5 10^3/uL (1.0-4.8); ABS Monocytes 0.4 10^3/uL (0.0-1.1); ABS Neutrophils 4.1 10^3/uL (1.5-7.6); ABS Nucleated RBC 0.01 10^3/ul; Eosinophil % 3.2 %; Hematocrit 25.1 % (38-53); Hemoglobin 8.3 g/dL (13.2-16.3); Lymphocyte % 9.8 %; Mean Corpuscular Hemoglobin 28.2 pg (27-33); Mean Corpuscular Hgb Conc 32.9 g/dL (31-36); Mean Corpuscular Volume 85.6 fL (80-97); Mean Platelet Volume 6.9 fL (7.5-11.2); Nucleated Red Blood Cells % 0.2 %/100WBC (0.0-0.8); Platelet Count 236 10^3/uL (150-450); Red Blood Count 2.94 10^6/uL (4.06-5.63); Red Cell Distribution Width 15.2 % (12-17); White Blood Count 5.3 10^3/uL (3.6-10.2)
[2023-06-30 06:47] LABS: Creatinine, Serum 0.95 mg/dL (0.67-1.17); Magnesium 1.9 mg/dL (1.9-2.7); Potassium 4.3 mmol/L (3.5-5.0); eGFR CKD-EPI 80.4 (>60)
[2023-06-30] MEDS: Insulin GLARGINE 100 un/ml 10 ml VIAL SUBCUT SCH (21:40)
[2023-07-01 06:37] LABS: ABS Eosinophils 0.2 10^3/uL (0.0-0.5); ABS Lymphocytes 0.6 10^3/uL (1.0-4.8); ABS Monocytes 0.4 10^3/uL (0.0-1.1); ABS Neutrophils 3.2 10^3/uL (1.5-7.6); Eosinophil % 3.7 %; Hematocrit 25.8 % (38-53); Hemoglobin 8.6 g/dL (13.2-16.3); Lymphocyte % 13.5 %; Mean Corpuscular Hemoglobin 28.2 pg (27-33); Mean Corpuscular Hgb Conc 33.5 g/dL (31-36); Mean Corpuscular Volume 84.1 fL (80-97); Platelet Count 259 10^3/uL (150-450); Red Blood Count 3.06 10^6/uL (4.06-5.63); Red Cell Distribution Width 15.4 % (12-17); White Blood Count 4.4 10^3/uL (3.6-10.2)
[2023-07-01 06:54] LABS: Calcium 7.9 mg/dL (8.6-10.3); Creatinine, Serum 0.95 mg/dL (0.67-1.17); Magnesium 1.8 mg/dL (1.9-2.7); Potassium 4.2 mmol/L (3.5-5.0); eGFR CKD-EPI 80.4 (>60)
[2023-07-01 13:15] LABS: Rapid COVID-19 Molecular Undetected (Undetected)
[2023-07-01] MEDS: Insulin GLARGINE 100 un/ml 10 ml VIAL SUBCUT SCH (14:21)
[2023-07-02 07:23] LABS: Creatinine, Serum 0.99 mg/dL (0.67-1.17); Potassium 4.3 mmol/L (3.5-5.0); eGFR CKD-EPI 76.5 (>60)
[2023-07-02 15:15] LABS: C Reactive Protein 34.07 mg/L (<8.01)
[2023-07-02] MEDS: Albuterol/Ipratropium NEB.SOL (2.5/0.5 MG) 3 ML NEB.SOLN INH SCH (19:50)
[2023-07-03 06:54] LABS: ABS Basophils 0.1 10^3/uL (0.0-0.1); ABS Eosinophils 0.3 10^3/uL (0.0-0.5); ABS Lymphocytes 0.9 10^3/uL (1.0-4.8); ABS Monocytes 0.4 10^3/uL (0.0-1.1); ABS Neutrophils 3.2 10^3/uL (1.5-7.6); Eosinophil % 6.1 %; Hematocrit 26.2 % (38-53); Hemoglobin 8.7 g/dL (13.2-16.3); Lymphocyte % 19.6 %; Mean Corpuscular Hemoglobin 28.2 pg (27-33); Mean Corpuscular Hgb Conc 33.1 g/dL (31-36); Platelet Count 283 10^3/uL (150-450); Red Blood Count 3.08 10^6/uL (4.06-5.63); Red Cell Distribution Width 15.6 % (12-17); White Blood Count 4.8 10^3/uL (3.6-10.2)
[2023-07-03 07:16] LABS: Calcium 8.2 mg/dL (8.6-10.3); Creatinine, Serum 1.01 mg/dL (0.67-1.17); Potassium 4.6 mmol/L (3.5-5.0); eGFR CKD-EPI 74.7 (>60)
[2023-07-03 10:26] VITALS: BP 122/69
[2023-07-04 21:41] LABS: Adenovirus Undetected (Undetected); Bordetella parapertussis Undetected (Undetected); Bordetella pertussis Undetected (Undetected); Chlamydophila pneumoniae Undetected (Undetected); Coronavirus 229E Undetected (Undetected); Coronavirus HKU1 Undetected (Undetected); Coronavirus NL63 Undetected (Undetected); Coronavirus OC43 Undetected (Undetected); Human Metapneumovirus Undetected (Undetected); Human Rhinovirus/Enterovirus Undetected (Undetected); Influenza A Undetected (Undetected); Influenza B Undetected (Undetected); Mycoplasmoides pneumoniae Undetected (Undetected); Parainfluenza Virus 1 Undetected (Undetected); Parainfluenza Virus 2 Undetected (Undetected); Parainfluenza Virus 3 Detected (Undetected); Parainfluenza Virus 4 Undetected (Undetected); Respiratory Syncytial Virus Undetected (Undetected); Specimen Source NASOPHARYNGEAL SWAB
== END 2023-07-03 13:18 | DRG 438 ==
LOC: ED 12:31 → EDHOLD 12:31 → MED 23:52 → SUATTDRO 06-26 10:43
PROVIDERS: ADMIT Hospitalist; ATTEND Internal Medicine

== ENCOUNTER 2023-09-17 09:33 | Inpatient (IN) ==
[2023-09-17 10:11] LABS: ABS Eosinophils 0.3 10^3/uL (0.0-0.5); ABS Lymphocytes 0.8 10^3/uL (1.0-4.8); ABS Monocytes 0.6 10^3/uL (0.0-1.1); ABS Neutrophils 7.8 10^3/uL (1.5-7.6); Eosinophil % 3.3 %; Hematocrit 37.5 % (38-53); Hemoglobin 12.4 g/dL (13.2-16.3); Lymphocyte % 8.6 %; Mean Corpuscular Hemoglobin 29.9 pg (27-33); Mean Corpuscular Hgb Conc 33.1 g/dL (31-36); Mean Corpuscular Volume 90.2 fL (80-97); Mean Platelet Volume 7.1 fL (7.5-11.2); Platelet Count 226 10^3/uL (150-450); Red Blood Count 4.16 10^6/uL (4.06-5.63); Red Cell Distribution Width 15.9 % (12-17); White Blood Count 9.6 10^3/uL (3.6-10.2)
[2023-09-17] MEDS: Lactated Ringers 1000 ml BAG 1,000 ML IV ONE (10:19)
[2023-09-17] MEDS: Piperacillin/Tazobac 3.375 BAG 3.375 GM/100 ML BAG IV ONE (10:19)
[2023-09-17 10:34] LABS: Activated Partial Thrombo Time 35.5 seconds (26.0-38.0); INR 1.15 (0.83-1.13)
[2023-09-17] MEDS: Acetaminophen IV 1 GM/100ML 1,000 MG/100 ML BAG IV ONE (11:01)
[2023-09-17] MEDS: Albuterol/Ipratropium NEB.SOL (2.5/0.5 MG) 3 ML NEB.SOLN INH ONE (11:04)
[2023-09-17 11:26] LABS: Albumin 3.6 g/dL (3.2-5.2); Albumin/Globulin Ratio 1.3 (1-3); C Reactive Protein 97.01 mg/L (<8.01); Calcium 9.7 mg/dL (8.6-10.3); Creatinine, Serum 1.2 mg/dL (0.67-1.17); Globulin 2.8 g/dL (2-4); Potassium 4.7 mmol/L (3.5-5.0); Total Bilirubin 0.5 mg/dL (0.2-1.0); Total Protein 6.4 g/dL (6.4-8.9); eGFR CKD-EPI 60.4 (>60)
[2023-09-17 12:14] LABS: High Sensitivity Troponin 1 Hr 7 pg/mL (<20)
[2023-09-17 12:53] LABS: Urine Appearance Extra Turbid; Urine Bilirubin Negative (Negative); Urine Blood 1+ (Negative); Urine Glucose Negative (Negative); Urine Ketones Negative (Negative); Urine Nitrite Negative (Negative); Urine Protein 1+ (>=30 mg/dL) (Negative); Urine Specific Gravity 1.017 (1.002-1.030); Urine Urobilinogen Negative (Negative); Urine pH 6.5 (5.0-8.0)
[2023-09-17 13:08] LABS: Urine Bacteria Absent /HPF (Absent); Urine Red Blood Cell 3+(>10/hpf) /HPF (0-Trace); Urine White Blood Cell 3+(>20/hpf) /HPF (0-Trace)
[2023-09-17] MEDS ORDERED: Zosyn per Pharmacy NOTE FOLLOW UP SCH (14:00)
[2023-09-17] MEDS: ZOSYN 3.375 GM Q8H per EXTENDED INFUSION IV SCH ×2 (14:00→22:46)
[2023-09-17] MEDS: Enoxaparin 40 MG/0.4 ML SYR SUBCUT SCH (14:06)
[2023-09-17 14:08] LABS: Urine Color Yellow
[2023-09-17] MEDS ORDERED: Albuterol HFA INHALER 8 gm MDI INH PRN (14:09)
[2023-09-17] MEDS ORDERED: Naloxone Nasal Spray 4 MG/0.1 ML NASAL.SPR INTRANASAL PRN (14:09)
[2023-09-17] MEDS ORDERED: Carboxymethylcellulos 1% OPTH 1 AMP BOTH EYES PRN (14:32)
[2023-09-17] MEDS: Polyethylene Glycol 3350 17 GM PACKET PO SCH (21:30)
[2023-09-17] MEDS: Morphine ER 15 mg TAB ** extended release PO SCH (21:49)
[2023-09-17] MEDS: Carbidopa/Levodop 25/100 MG TAB PO SCH (21:57)
[2023-09-17] MEDS: CMCS: Lubiprostone 24 MCG CAP (NF) PO SCH (22:41)
[2023-09-18 05:04] LABS: Hematocrit 31.3 % (38-53); Hemoglobin 10.6 g/dL (13.2-16.3); Mean Corpuscular Hemoglobin 30.5 pg (27-33); Mean Corpuscular Hgb Conc 33.7 g/dL (31-36); Mean Corpuscular Volume 90.5 fL (80-97); Platelet Count 193 10^3/uL (150-450); Red Blood Count 3.46 10^6/uL (4.06-5.63); Red Cell Distribution Width 15.4 % (12-17); White Blood Count 6.5 10^3/uL (3.6-10.2)
[2023-09-18 05:20] LABS: Calcium 9.2 mg/dL (8.6-10.3); Creatinine, Serum 1.09 mg/dL (0.67-1.17); Potassium 4.1 mmol/L (3.5-5.0); eGFR CKD-EPI 67.8 (>60)
[2023-09-18] MEDS: Iodixanol (CONTRAST) 320 MG/ML 100 ML SDV IV ONE (11:04)
[2023-09-18] MEDS: RIVASTIGMINE 9.5 MG TRANSDERM SCH (11:13)
[2023-09-18] MEDS: cefTRIAXone 1 gm/50 mL D5W 1 GM/50 ML BAG IV SCH (11:16)
[2023-09-18] MEDS: Azithromycin 500 mg/250 ml NS 500 MG/250 ML BAG IVPB SCH (12:42)
[2023-09-18] MEDS: Lactated Ringers 1000 ml BAG 1,000 ML IV ONE (15:32)
[2023-09-18 23:24] LABS: Urine Appearance Turbid; Urine Bilirubin Negative (Negative); Urine Blood Trace (Negative); Urine Color Yellow; Urine Glucose Negative (Negative); Urine Ketones Negative (Negative); Urine Nitrite Negative (Negative); Urine Protein 1+ (>=30 mg/dL) (Negative); Urine Specific Gravity 1.044 (1.002-1.030); Urine Urobilinogen Negative (Negative)
[2023-09-18 23:52] LABS: Urine Bacteria Absent /HPF (Absent); Urine Red Blood Cell Absent /HPF (0-Trace); Urine Squamous Epithelial Cell Present /HPF (Absent); Urine White Blood Cell 3+(>20/hpf) /HPF (0-Trace)
[2023-09-19 06:38] LABS: Hematocrit 29.4 % (38-53); Hemoglobin 9.7 g/dL (13.2-16.3); Mean Corpuscular Hemoglobin 29.7 pg (27-33); Mean Corpuscular Hgb Conc 33.1 g/dL (31-36); Mean Corpuscular Volume 89.7 fL (80-97); Mean Platelet Volume 7.1 fL (7.5-11.2); Platelet Count 214 10^3/uL (150-450); Red Blood Count 3.27 10^6/uL (4.06-5.63); Red Cell Distribution Width 15.1 % (12-17)
[2023-09-19] MEDS: Magnesium Hydroxide LIQ 30 ML UDC PO PRN (10:38)
[2023-09-19] MEDS: Glycerin ADULT 2.4 gm SUPP PR ONE (11:30)
[2023-09-19] MEDS: Hemorrhoidal OINT 1 TUBE PR PRN (14:07)
[2023-09-20 06:30] LABS: Hematocrit 29.4 % (38-53); Hemoglobin 9.7 g/dL (13.2-16.3); Mean Corpuscular Hemoglobin 29.7 pg (27-33); Mean Corpuscular Hgb Conc 33.1 g/dL (31-36); Mean Corpuscular Volume 89.8 fL (80-97); Mean Platelet Volume 7.1 fL (7.5-11.2); Platelet Count 219 10^3/uL (150-450); Red Blood Count 3.28 10^6/uL (4.06-5.63); Red Cell Distribution Width 15.3 % (12-17); White Blood Count 6.6 10^3/uL (3.6-10.2)
[2023-09-20] MEDS: NF:Olopatadine 0.2% (NF) 1 DROP BTL BOTH EYES SCH (21:03)
[2023-09-22 06:16] LABS: Hematocrit 30.2 % (38-53); Hemoglobin 10.1 g/dL (13.2-16.3); Mean Corpuscular Hgb Conc 33.3 g/dL (31-36); Mean Corpuscular Volume 90.1 fL (80-97); Mean Platelet Volume 6.9 fL (7.5-11.2); Platelet Count 225 10^3/uL (150-450); Red Blood Count 3.35 10^6/uL (4.06-5.63); Red Cell Distribution Width 15.1 % (12-17); White Blood Count 7.7 10^3/uL (3.6-10.2)
[2023-09-22 06:40] LABS: ABS Basophils 0.1 10^3/uL (0.0-0.1); ABS Eosinophils 0.4 10^3/uL (0.0-0.5); ABS Lymphocytes 1.6 10^3/uL (1.0-4.8); ABS Monocytes 0.6 10^3/uL (0.0-1.1); ABS Neutrophils 5.1 10^3/uL (1.5-7.6); ABS Nucleated RBC 0.02 10^3/ul; Eosinophil % 5.5 %; Lymphocyte % 20.5 %; Nucleated Red Blood Cells % 0.2 %/100WBC (0.0-0.8)
[2023-09-22 06:45] LABS: Creatinine, Serum 0.89 mg/dL (0.67-1.17); Magnesium 1.7 mg/dL (1.9-2.7); Potassium 4.8 mmol/L (3.5-5.0); eGFR CKD-EPI 85.6 (>60)
[2023-09-22] MEDS: Magnesium Sulfate 2 gm BAG 2 GM/50 ML BAG IVPB ONE (07:38)
[2023-09-22] MEDS: Magnesium Sulfate IV 1GM/100ML 1 GM/100 ML BAG IV ONE (07:38)
[2023-09-22 12:48] LABS: Rapid COVID-19 Molecular Undetected (Undetected)
[2023-09-23 10:09] VITALS: BP 105/54
== END 2023-09-23 10:31 | DRG 177 ==
LOC: ED 09:33 → EDHOLD 13:30 → SUATTDRO 13:30 → MEDTELE 15:16
PROVIDERS: ADMIT Student in an Organized Health Care Education/Training Program; ATTEND Hospitalist

== ENCOUNTER 2023-10-13 14:41 | Observation (INO) ==
[2023-10-13 16:45] LABS: ABS Basophils 0.1 10^3/uL (0.0-0.1); ABS Eosinophils 0.4 10^3/uL (0.0-0.5); ABS Lymphocytes 1.1 10^3/uL (1.0-4.8); ABS Monocytes 0.5 10^3/uL (0.0-1.1); ABS Neutrophils 4.8 10^3/uL (1.5-7.6); Eosinophil % 5.7 %; Hematocrit 33.8 % (38-53); Hemoglobin 11.3 g/dL (13.2-16.3); Lymphocyte % 16.3 %; Mean Corpuscular Hemoglobin 30.8 pg (27-33); Mean Corpuscular Hgb Conc 33.6 g/dL (31-36); Mean Corpuscular Volume 91.6 fL (80-97); Mean Platelet Volume 6.8 fL (7.5-11.2); Platelet Count 232 10^3/uL (150-450); Red Blood Count 3.69 10^6/uL (4.06-5.63); Red Cell Distribution Width 15.4 % (12-17); White Blood Count 6.9 10^3/uL (3.6-10.2)
[2023-10-13 16:49] LABS: Anion Gap 6 mmol/L (2-16); Blood Urea Nitrogen 47 mg/dL (6-24); CO2 Carbon Dioxide 29 mmol/L (22-32); CRP High Sensitivity 30.43 mg/L (<2.00); Calcium 9.6 mg/dL (8.6-10.3); Chloride 102 mmol/L (101-111); Creatinine, Serum 1.31 mg/dL (0.67-1.17); Glucose 210 mg/dL (70-100); Potassium 4.5 mmol/L (3.5-5.0); Sodium 137 mmol/L (135-145); eGFR CKD-EPI 54.3 (>60)
[2023-10-13 16:55] LABS: High Sens Troponin Baseline 4 pg/mL (<20)
[2023-10-13 17:03] LABS: TSH Ultra Thyroid Stim Horm 2.55 mcIU/mL (0.34-5.60)
[2023-10-13 17:09] LABS: ALT < 3 U/L (7-52); AST 8 U/L (13-39); Albumin 3.5 g/dL (3.2-5.2); Albumin/Globulin Ratio 1.3 (1-3); Alkaline Phosphatase 51 U/L (35-149); Globulin 2.6 g/dL (2-4); Total Bilirubin 0.3 mg/dL (0.2-1.0); Total Protein 6.1 g/dL (6.4-8.9)
[2023-10-13] MEDS: Iodixanol (CONTRAST) 320 MG/ML 100 ML SDV IV ONE (17:27)
[2023-10-13] MEDS: NS 0.9% 1000 ml BAG 1,000 ML IV ONE (18:20)
[2023-10-13 18:26] LABS: High Sensitivity Troponin 1 Hr 4 pg/mL (<20)
[2023-10-13 18:36] LABS: Urine Appearance Extra Turbid; Urine Bilirubin Negative (Negative); Urine Blood 2+ (Negative); Urine Glucose Negative (Negative); Urine Ketones Negative (Negative); Urine Nitrite Negative (Negative); Urine Protein 1+ (>=30 mg/dL) (Negative); Urine Specific Gravity 1.035 (1.002-1.030); Urine Urobilinogen Negative (Negative); Urine pH 6.5 (5.0-8.0)
[2023-10-13 19:01] LABS: Urine Bacteria 3+ /HPF (Absent); Urine Red Blood Cell 3+(>10/hpf) /HPF (0-Trace); Urine White Blood Cell 3+(>20/hpf) /HPF (0-Trace)
[2023-10-13] MEDS: cefTRIAXone 1 gm/50 mL D5W 1 GM/50 ML BAG IV ONE ×2 (19:41→20:19)
[2023-10-13 19:43] LABS: Urine Color Yellow
[2023-10-14] MEDS ORDERED: Senna TAB 8.6 mg TAB PO PRN (00:32)
[2023-10-14] MEDS ORDERED: Polyethylene Glycol 3350 17 GM PACKET PO PRN (00:32)
[2023-10-14] MEDS ORDERED: Carboxymethylcellulos 1% OPTH 1 AMP BOTH EYES PRN (00:46)
[2023-10-14] MEDS ORDERED: Albuterol HFA INHALER 8 gm MDI INH PRN (00:46)
[2023-10-14] MEDS ORDERED: Naloxone Nasal Spray 4 MG/0.1 ML NASAL.SPR INTRANASAL PRN (00:48)
[2023-10-14] MEDS: CMCS:Lubiprostone 24 MCG CAP (NF) PO SCH (09:20)
[2023-10-14] MEDS: Carbidopa/Levodop 25/100 MG TAB PO SCH (09:20)
[2023-10-14] MEDS: Insulin GLARGINE 100 un/ml 10 ml VIAL SUBCUT SCH (09:23)
[2023-10-14] MEDS: Heparin 5000 UNITS/ML 1 mL VIAL SUBCUT SCH (09:24)
[2023-10-14] MEDS: Dextran 70/Hypromellose Tears Eye Drops 15 ml BTL (for Artificials Tears) BOTH EYES SCH (09:30)
[2023-10-14] MEDS: Olopatadine 0.2% (NF) 1 DROP BTL BOTH EYES SCH (11:26)
[2023-10-14 12:10] LABS: Urine Appearance Turbid; Urine Bilirubin Negative (Negative); Urine Blood Trace (Negative); Urine Color Yellow; Urine Glucose Negative (Negative); Urine Ketones Negative (Negative); Urine Nitrite Negative (Negative); Urine Protein 1+ (>=30 mg/dL) (Negative); Urine Specific Gravity 1.025 (1.002-1.030); Urine Urobilinogen Negative (Negative); Urine pH 7.5 (5.0-8.0)
[2023-10-14 12:26] LABS: Urine Bacteria Absent /HPF (Absent); Urine Red Blood Cell 3+(>10/hpf) /HPF (0-Trace); Urine White Blood Cell 3+(>20/hpf) /HPF (0-Trace)
[2023-10-14] MEDS: Hemorrhoidal OINT 1 TUBE PR PRN (15:01)
[2023-10-14] MEDS: NON FORMULARY MED (Zinc Acetate 50 mg (zinc) Capsule) PO SCH (15:09)
[2023-10-14] MEDS: Lactated Ringers 1000 ml BAG 1,000 ML IV ONE (16:26)
[2023-10-14] MEDS: cefTRIAXone 1 gm/50 mL D5W 1 GM/50 ML BAG IV SCH (20:10)
[2023-10-14] MEDS: Morphine ER 15 mg TAB ** extended release PO SCH (23:21)
[2023-10-15 06:15] LABS: ABS Eosinophils 0.5 10^3/uL (0.0-0.5); ABS Lymphocytes 1.2 10^3/uL (1.0-4.8); ABS Monocytes 0.4 10^3/uL (0.0-1.1); ABS Neutrophils 3.9 10^3/uL (1.5-7.6); Eosinophil % 8.4 %; Hematocrit 31.1 % (38-53); Hemoglobin 10.6 g/dL (13.2-16.3); Lymphocyte % 20.1 %; Mean Corpuscular Hemoglobin 31.3 pg (27-33); Mean Corpuscular Hgb Conc 34.1 g/dL (31-36); Mean Corpuscular Volume 91.8 fL (80-97); Mean Platelet Volume 6.6 fL (7.5-11.2); Platelet Count 238 10^3/uL (150-450); Red Blood Count 3.39 10^6/uL (4.06-5.63); Red Cell Distribution Width 14.7 % (12-17); White Blood Count 6.1 10^3/uL (3.6-10.2)
[2023-10-15 06:55] LABS: Calcium 9.1 mg/dL (8.6-10.3); Creatinine, Serum 1.03 mg/dL (0.67-1.17); Magnesium 1.8 mg/dL (1.9-2.7); Potassium 4.4 mmol/L (3.5-5.0); eGFR CKD-EPI 72.5 (>60)
[2023-10-15] MEDS: Hemorrhoidal OINT 1 TUBE PR PRN (11:41)
[2023-10-15 13:35] VITALS: BP 131/59
== END 2023-10-15 14:30 ==
LOC: EDHOLD 14:41 → ED 14:41 → SUATTDRO 20:55 → MED 10-14 02:49
PROVIDERS: ADMIT Internal Medicine; ATTEND Internal Medicine